=== PATIENT | male | born 1960 | race Caucasian/White ===

== ENCOUNTER → 2017-12-11 16:38 | Outpatient (CLI) | payer MEDICARE, SELFPAY ==
[2017-12-11 19:38] LABS: Anion Gap 7 (5-15); BUN 25 mg/dL (7-18); BUN/Creat Ratio 18.9 RATIO (10-20); Chloride 107 mmol/L (98-107); Creatinine, Serum 1.32 mg/dL (0.70-1.30); EST Glomerular Filtration Rate 59 mL/min (>60); Est Glom Filt Rate - Afr Amer 71 mL/min (>60); Glucose 149 mg/dL (74-106); Potassium 3.8 mmol/L (3.5-5.1); Sodium Level 143 mmol/L (136-145)
== END ==
PROVIDERS: Family Provider Family Medicine; PCP Family Medicine; Visit Provider Family Medicine
DX: E87.6 Hypokalemia (principal)
CPT/HCPCS: 36415; 80048

== ENCOUNTER → 2018-02-15 16:19 | Outpatient (CLI) | payer MEDICARE, SELFPAY ==
[2018-02-15 17:14] LABS: Anion Gap 9 (5-15); BUN 21 mg/dL (7-18); BUN/Creat Ratio 17.6 RATIO (10-20); Calcium,Total 9.3 mg/dL (8.5-10.1); Chloride 108 mmol/L (98-107); Creatinine, Serum 1.19 mg/dL (0.70-1.30); EST Glomerular Filtration Rate 66 mL/min (>60); Est Glom Filt Rate - Afr Amer 80 mL/min (>60); Glucose 115 mg/dL (74-106); Potassium 3.9 mmol/L (3.5-5.1); Sodium Level 141 mmol/L (136-145)
== END ==
PROVIDERS: Family Provider Family Medicine; PCP Family Medicine; Visit Provider Family Medicine
DX: N28.9 Disorder of kidney and ureter, unspecified (principal)
CPT/HCPCS: 36415; 80048

== ENCOUNTER → 2019-02-02 16:34 | Outpatient (CLI) | payer OTHER, SELFPAY ==
[2019-02-02 17:35] LABS: Absolute Lymphocyte Count 1.65 X10^3/ul (0.83-4.51); Absolute Neutrophil Count 4.9 X10^3/uL (2.0-7.7); Basophil# 0.03 X10^3/uL; Basophil% 0.4 % (0-1); Eosinophil# 0.15 X10^3/uL; Hematocrit 44.2 % (40-54); Hemoglobin 14.5 g/dl (13.0-16.5); Lymphocyte # 1.65 X10^3/ul (4.0); Lymphocyte % 22.5 % (19-41); Mean Corp Hgb Conc 32.8 g/gl (32-36); Mean Corpuscular Hgb 30.9 pg (27.0-32.0); Mean Corpuscular Volume 94.2 fL (80-94); Mean Platelet Vol. 11.7 fl (6.2-12.0); Monocyte# 0.59 X10^3/uL; Neutrophil # 4.91 X10^3/uL (2.7-7.7); Platelet Count 226 K/mm3 (150-450); RBC Distribution Width CV 13.4 % (11.6-14.6); RBC Distribution Width SD 44.1 fl (35.1-43.9); Red Blood Count 4.69 M/mm3 (4.6-6.2); White Blood Count 7.3 K/mm3 (4.4-11.0)
[2019-02-02 17:38] LABS: Anion Gap 10 (5-15); BUN 22 mg/dL (7-18); BUN/Creat Ratio 18.3 RATIO (10-20); Calcium,Total 9.2 mg/dL (8.5-10.1); Chloride 106 mmol/L (98-107); EST Glomerular Filtration Rate 65 mL/min (>60); Est Glom Filt Rate - Afr Amer 79 mL/min (>60); Glucose 146 mg/dL (74-106); Potassium 3.6 mmol/L (3.5-5.1); Sodium Level 140 mmol/L (136-145)
[2019-02-02 17:42] LABS: POSITIVE COUNT NO; POSITIVE DIFFERENTIAL NO; POSITIVE MORPHOLOGY NO
== END ==
PROVIDERS: Family Provider Family Medicine; PCP Family Medicine; Visit Provider Family Medicine
DX: E11.9 Type 2 diabetes mellitus without complications (principal); I10 Essential (primary) hypertension
CPT/HCPCS: 36415; 80048; 85025

== ENCOUNTER → 2020-05-21 07:09 | Outpatient (CLI) | payer OTHER, SELFPAY ==
--- NOTE | 2020-05-21 07:20 | MRI_ITS ---
STUDY: MRI RIGHT SHOULDER REASON FOR EXAM: Male, 60 years old. pain x 3 yrs, no injury, decreased rom/strength TECHNIQUE: Standardized fat and water weighted pulse sequences were obtained in all 3 orthogonal planes. COMPARISON: None. FINDINGS: Normal supraspinatus tendon. Normal infraspinatus tendon. Normal subscapularis tendon. Normal teres minor tendon. Normal supraspinatus muscle. Normal infraspinatus muscle. Normal subscapularis muscle. Normal teres minor muscle. There is severe osteoarthritis of the glenohumeral articulation. Normal humeral head and visualized proximal humerus. Normal biceps labral complex. Normal intracapsular long biceps tendon. There is labral degeneration with blunting of the mil, but there is no demonstrated discrete labral tear. Normal capsulo- ligamentous complex. Normal rotator interval. Normal acromioclavicular articulation. There is a Type II morphology (curved), with a neutral orientation. There is no subacromial-subdeltoid bursal fluid. Normal visualized coracohumeral and coracoacromial ligaments. Normal quadrilateral space. Normal axillary space. Normal deltoid muscle. Normal trapezius muscle. MRI/Upper Ext Joint Only(Routine) IMPRESSION: Severe glenohumeral joint arthrosis. Electronically Signed: Delmar Rizvi MD at 9:54 EDT Tel , Service support ,
== END ==
PROVIDERS: PCP Family Medicine; Referring Provider Family Medicine; Visit Provider Family Medicine
DX: M25.511 Pain in right shoulder (principal)
CPT/HCPCS: 73221

== ENCOUNTER → 2020-06-20 15:40 | Outpatient (CLI) | payer OTHER, SELFPAY ==
[2020-06-20 16:52] LABS: Absolute Lymphocyte Count 1.12 X10^3/uL (0.83-4.51); Absolute Neutrophil Count 4.9 X10^3/uL (2.0-7.7); Basophil# 0.03 X10^3/uL; Basophil% 0.4 % (0-1); Hematocrit 42.4 % (40-54); Hemoglobin 13.6 g/dL (13.0-16.5); Lymphocyte # 1.12 X10^3/ul (4.0); Lymphocyte % 16.6 % (19-41); Mean Corp Hgb Conc 32.1 g/dL (32-36); Mean Corpuscular Hgb 30.9 pg (27.0-32.0); Mean Corpuscular Volume 96.4 fL (80-94); Mean Platelet Vol. 12.2 fl (6.2-12.0); Monocyte% 7.4 % (0-10); NRBC Flagged by Analyzer 0 % (0-5); Neutrophil # 4.88 X10^3/uL (2.7-7.7); Neutrophil % 72.2 % (47-70); Platelet Count 232 K/mm3 (150-450); RBC Distribution Width CV 12.9 % (11.6-14.6); RBC Distribution Width SD 45.9 fl (35.1-43.9); White Blood Count 6.8 K/mm3 (4.4-11.0)
[2020-06-20 17:55] LABS: ALB/GLOB Ratio 0.8 RATIO (0.9-2.4); AST(SGOT) 64 U/L (15-37); Alanine Aminotransfer ALT/SGPT 66 U/L (16-61); Albumin, Serum 3.5 g/dL (3.2-5.0); Alkaline Phosphatase 73 U/L (45-117); Anion Gap 9 (5-15); BUN 16 mg/dL (7-18); BUN/Creat Ratio 13.1 RATIO (10-20); Calcium,Total 9.2 mg/dL (8.5-10.1); Chloride 103 mmol/L (98-107); Creatinine, Serum 1.22 mg/dL (0.70-1.30); EST Glomerular Filtration Rate 64 mL/min (>60); Est Glom Filt Rate - Afr Amer 77 mL/min (>60); Globulin 4.4 g/dL (2.2-4.2); Glucose 235 mg/dL (74-106); Potassium 3.6 mmol/L (3.5-5.1); Protein, Total 7.9 g/dL (6.4-8.2); Sodium Level 142 mmol/L (136-145); T4 Free Direct 1.41 ng/dL (0.76-1.46); Thyroid Stim Hormone (TSH) 1.71 uIU/mL (0.358-3.74)
== END ==
PROVIDERS: PCP Family Medicine; Visit Provider Family Medicine
DX: E11.65 Type 2 diabetes mellitus with hyperglycemia (principal); G25.2 Other specified forms of tremor; I10 Essential (primary) hypertension; E78.5 Hyperlipidemia, unspecified
CPT/HCPCS: 36415; 80053; 84439; 84443; 85025

== ENCOUNTER 2020-12-13 10:39 | Outpatient (RCR) | payer MEDICAID, SELFPAY ==
[2020-12-13] MEDS: COVID-19 VACC, MRNA(PFIZER)/PF 30 MCG/0.3 ML SYRINGE IM (06:59)
[2021-01-03] MEDS: COVID-19 VACC, MRNA(PFIZER)/PF 30 MCG/0.3 ML SYRINGE IM (07:14)
== END 2020-12-13 23:59 ==
LOC: IMMUN 10:39
PROVIDERS: PCP Family Medicine; Visit Provider Family Medicine
DX: Z23 Encounter for immunization (principal)
CPT/HCPCS: 0001A; 0002A; 91300

== ENCOUNTER → 2021-01-01 06:22 | Outpatient (CLI) | payer MEDICAID, SELFPAY ==
[2020-12-18 08:17] VITALS: BMI 44.8
[2021-01-01 08:13] LABS: Vitamin B12 453 pg/mL (211-911)
[2021-01-01 08:34] LABS: ALB/GLOB Ratio 0.8 RATIO (0.9-2.4); AST(SGOT) 32 U/L (15-37); Alanine Aminotransfer ALT/SGPT 56 U/L (16-61); Albumin, Serum 3.5 g/dL (3.2-5.0); Alkaline Phosphatase 64 U/L (45-117); Anion Gap 6 (5-15); BUN 24 mg/dL (7-18); BUN/Creat Ratio 19.5 RATIO (10-20); Calcium,Total 9.3 mg/dL (8.5-10.1); Chloride 104 mmol/L (98-107); Creatinine, Serum 1.23 mg/dL (0.70-1.30); EST Glomerular Filtration Rate 63 mL/min (>60); Est Glom Filt Rate - Afr Amer 77 mL/min (>60); Globulin 4.2 g/dL (2.2-4.2); Glucose 189 mg/dL (74-106); Potassium 3.9 mmol/L (3.5-5.1); Protein, Total 7.7 g/dL (6.4-8.2); Sodium Level 138 mmol/L (136-145); Thyroid Stim Hormone (TSH) 2.38 uIU/mL (0.358-3.74)
[2021-01-02 16:08] LABS: Free Kappa Light Chains 30.9 mg/L (3.3-19.4); Free Lambda Light Chains 27.9 mg/L (5.7-26.3)
== END ==
PROVIDERS: PCP Family Medicine; Referring Provider Psychiatry & Neurology Neurology; Visit Provider Psychiatry & Neurology Neurology
DX: G25.0 Essential tremor (principal); G62.9 Polyneuropathy, unspecified; I10 Essential (primary) hypertension
CPT/HCPCS: 36415; 80053; 82607; 82746; 83883; 84443

== ENCOUNTER → 2021-01-28 08:46 | Outpatient (CLI) | payer MEDICAID, SELFPAY ==
[2021-01-30 16:09] LABS: Albumin 3.4 g/dL (2.9-4.4); Alpha-1-Globulins 0.2 g/dL (0.0-0.4); Alpha-2-Globulins 1.1 g/dL (0.4-1.0); Gamma Globulin 0.9 g/dL (0.4-1.8); Immunoglobulin A 288 mg/dL (61-437); Immunoglobulin G 957 mg/dL (603-1613); Immunoglobulin M 84 mg/dL (20-172); PROEL- TOTAL PROTEIN 6.8 g/dL (6.0-8.5)
== END ==
PROVIDERS: PCP Family Medicine; Referring Provider Psychiatry & Neurology Neurology; Visit Provider Psychiatry & Neurology Neurology
DX: G62.9 Polyneuropathy, unspecified (principal)
CPT/HCPCS: 36415; 82784; 84165; 86334; 86335

== ENCOUNTER → 2021-02-18 12:47 | Outpatient (CLI) | payer MEDICAID, SELFPAY ==
[2021-02-04 17:54] VITALS: BMI 43.4
--- NOTE | 2021-02-18 12:52 | RAD_ITS ---
STUDY: X-RAY BONE SURVEY COMPLETE REASON FOR EXAM: Male, 60 years old. MGUS, R/O MYELOMA TECHNIQUE: PA and lateral views of the chest. One view of the pelvis was obtained. 2 views of the cervical spine were obtained. 2 views of the thoracic spine were obtained. 2 views of the lumbar spine were obtained. 2 views of the femur. 2 views of the humerus. : 2 views of the skull were obtained. COMPARISON: None. FINDINGS: CHEST: There are interstitial changes of the lungs. There is no demonstrated pleural abnormality. Normal size heart. Normal mediastinum and cynthia. Normal visualized pulmonary arteries. Normal visualized aortic arch and descending thoracic aorta. There are diffuse degenerative changes of the visualized thoracic spine. Normal visualized ribs, clavicles, and shoulders. There is no demonstrated abnormality of the visualized soft tissue structures of the upper abdomen. PELVIS: There is a non-specific bowel gas pattern. Normal visualized soft tissue structures. Normal bilateral iliac wings, sacroiliac joints and visualized sacrum. Normal visualized bilateral superior and inferior pubic rami. Normal pubic symphysis. Normal ischial tuberosities. Normal visualized right femoral head. Normal right acetabulum. There is mild articular joint space narrowing of the right hip. Normal visualized left femoral head. Normal left acetabulum. There is mild articular joint space narrowing of the left hip. CERVICAL SPINE: Normal anterior atlantoaxial articulation. Normal odontoid process. There is straightening of the normal cervical lordosis. There is multi-level endplate spondylosis. There is multi-level degenerative disc disease with multilevel disc space narrowing. The soft tissue structures are unremarkable. THORACIC SPINE: Normal kyphosis of the thoracic spine. There is no substantial scoliosis. There is multilevel endplate spondylosis of the thoracic vertebrae. There is multilevel disc space narrowing of the thoracic spine. The soft tissue structures are unremarkable. LUMBAR SPINE: Normal lumbar lordosis. There is no substantial scoliosis. There is a normal alignment of the vertebrae. There is multilevel endplate spondylosis of the lumbar vertebrae. There is multi-level degenerative disc disease with multi-level disc space narrowing. There is atherosclerotic calcification of the abdominal aorta without a demonstrated aneurysm. RIGHT FEMUR: There is been previous ORIF of a distal femoral fracture. I suspect that the original fracture has healed, but there has likely been a second fracture which also involve the distal aspect of the intramedullary coby. The distal tip of the intramedullary coby is displaced laterally by one width of the coby. The second fracture has not completely healed as there is extensive lucency still noted. There is no suspicious erosive lesion noted within the right femur. LEFT FEMUR: Normal visualized femur. Normal visualized soft tissue structure. RIGHT HUMERUS :Normal visualized humerus. There is no demonstrated fracture or osseous destructive process. There is no demonstrated soft tissue abnormality. LEFT HUMERUS:Normal visualized humerus. There is no demonstrated fracture or osseous destructive process. There is no demonstrated soft tissue abnormality. SKULL: There is no demonstrated soft tissue swelling. There are multiple subtle lucencies within the calvarium. Although this may represent a myelomatous process, the lack of other erosive changes in other osseous structures could simply represent granulomatous process or epidermoid cyst. Normal visualized facial bones. Normal visualized paranasal sinuses. There is lucency surrounding a right mandibular molar suggesting abscessed tooth. RAD/Bone Survey Comp(Axial&Append) IMPRESSION: There are subtle circular lucencies noted within the calvarium. Certainly, a myelomatous process could have this appearance but since there are no other concerning lucent lesions in the other bony structures, my suspicion that this is myelomatous process is low. Other possibilities for skull lucencies include granulomatous processes, epidermoid inclusion cyst. No other suspicious lucent lesions identified within the spine long bones or pelvis. The distal aspect of the intramedullary coby in the right femur has been fractured, and displaced laterally. I suspect there was a second fracture in the distal femur after the originally reduced fracture had healed. The second fracture has not yet completely healed as serpiginous lucencies are still seen throughout its course. Age consistent hip and knee arthrosis Possible abscessed tooth in the right mandible Electronically Signed: Erwin Saleh MD at 11:09 EDT , Service support ,
== END ==
PROVIDERS: PCP Family Medicine; Referring Provider Internal Medicine Hematology & Oncology; Visit Provider Internal Medicine Hematology & Oncology
DX: D47.2 Monoclonal gammopathy (principal)
CPT/HCPCS: 77075

== ENCOUNTER → 2021-02-20 08:20 | Outpatient (CLI) | payer MEDICAID, SELFPAY ==
[2020-12-18 08:17] VITALS: BMI 44.8
[2021-02-04 17:54] VITALS: BMI 43.4
--- NOTE | 2021-02-20 14:12 | NEURO ---
NCS and/or EMG Patient Report Ordering Doctor: Jacobo Stapleton DATE OF SERVICE: 02/20/21 Lloyd Tee presents for electrodiagnostic testing of the right upper limb. Reports numbness and tingling in the right hand. He also has pain in the right upper arm. Electrodiagnostic findings: Absent right median motor and sensory responses. Right ulnar motor responses within normal limits. Normal right ulnar and radial sensory responses. Prolonged right ulnar F wave. Right median F wave cannot be obtained. On needle EMG, all muscles tested in the right upper limb, as well as the right cervical paraspinal showed no evidence of denervation with normal motor unit action potentials. Electrodiagnostic impression: This is an abnormal study in the right upper limb. 1. The absence of median motor and sensory responses, in conjunction with clinical symptoms, suggest right-sided median mononeuropathy. This is consistent with a right carpal tunnel syndrome, likely advanced in nature. 2. There is no electrodiagnostic evidence for cervical radiculopathy.
== END ==
PROVIDERS: PCP Family Medicine; Referring Provider Psychiatry & Neurology Neurology; Visit Provider Psychiatry & Neurology Neurology
DX: G56.01 Carpal tunnel syndrome, right upper limb (principal)
CPT/HCPCS: 95886; 95910

== ENCOUNTER 2021-04-16 17:45 | Emergency (ER) | payer MEDICAID, SELFPAY ==
[2021-04-01 15:32] VITALS: BMI 43.3
[2021-04-16 17:46] VITALS: BP 144/85; PULSE 78; RESP 18; TEMP 36.7; O2SAT 96; BMI 40.6
[2021-04-16 18:14] LABS: Bacteria 0 SEEN /hpf (None Seen); Mucous, Urine 0 SEEN /hpf (<or=2+); Squamous Epithelial Cells - UA 0 SEEN /hpf (0-5)
[2021-04-16 18:21] LABS: Color, Urine Yellow (Yellow); Glucose, Dipstick Normal (Normal); Ketone-Dipstick Negative (Negative); Leukocyte Esterase-Dipstick Negative /ul (Negative); Nitrite-Dipstick Negative (Negative); Occult Blood-Urine 250 /ul (Negative); Protein-Dipstick 15 mg/dl (Negative); Specific Gravity, Urine 1.015 (1.002-1.030); Urine Bilirubin Dipstick Negative (Negative); Urine Clarity Clear (Clear); Urine Urobilinogen Normal (Normal)
[2021-04-16] MEDS: Morphine 4 MG/ML Syringe IV (18:43)
--- NOTE | 2021-04-16 18:45 | EDS_ITS ---
HPI History of Present Illness Chief Complaint: Abd Pain Informant: patient Narrative Narrative: Patient is a 61-year-old male with a past medical history of hypertension, hyperlipidemia, diabetes who presents to the emergency department for left-sided flank pain that radiates to his abdomen. Started earlier today. He describes the pain as severe. He has not been taking anything for it. Movement seems to exacerbate his symptoms. He denies any change in bowel movements. No urinary symptoms. No nausea vomiting. No fevers or chills. He is never had this pain before. Does have a history of appendectomy. Of note he did have a reverse shoulder replacement this past Thursday. He denies any chest pain or shortness of breath. No heart palpitations. [facility] Medical History (Updated 04/16/21 @ 21:[address] Pascual Barr, ) Atherosclerosis of coronary artery without angina pectoris Diabetes Essential hypertension GERD (gastroesophageal reflux disease) History of appendicitis Hyperlipidemia Obesity MARKOS (obstructive sleep apnea) Home Medications atorvastatin 40 mg PO QHS 03/02/14 [History Last Taken Unknown] multivitamin 1 tab PO DAILY 03/02/14 [History Last Taken Unknown] omeprazole 20 mg PO DAILY 03/02/14 [History Last Taken 03/03/14] aspirin 81 mg chewable tablet 81 mg PO DAILY tab 12/17/20 [History Last Taken Unknown] atenolol 50 mg tablet 50 mg PO DAILY 12/17/20 [History Last Taken Unknown] lisinopril 20 mg-hydrochlorothiazide 12.5 mg tablet 1 tab PO BID tab 12/17/20 [History Last Taken Unknown] metformin 500 mg tablet 1,000 mg PO BID tablet 01/21/21 [History Last Taken Unknown] Right wrist splint #1 ea 04/01/21 [Rx Last Taken Unknown] flurbiprofen 100 mg tablet 100 mg PO TID PRN #90 tab 04/01/21 [Rx Last Taken Unknown] hydrocodone-acetaminophen 1 tab PO Q6H PRN 3 Days #12 tab 04/16/21 [Rx Last Taken Unknown] naproxen [Naprosyn] 500 mg PO BID 7 Days #14 tab 04/16/21 [Rx Last Taken Unknown] ondansetron 4 mg PO Q8H PRN 4 Days #10 tab 04/16/21 [Rx Last Taken Unknown] primidone 100 mg PO BID 04/16/21 [History Last Taken Unknown] tamsulosin [Flomax] 0.4 mg PO DAILY #7 cap 04/16/21 [Rx Last Taken Unknown] Allergy/AdvReac Type Severity Reaction Status Date / Time No Known Allergies Allergy Verified 04/16/21 17:48 Family History Father Diabetes Heart disease Hypertension CAD (coronary artery disease) Surgical History (Updated 04/16/21 @ 18:36 by Carmen Hood) History of appendectomy History of carpal tunnel surgery History of fracture of leg History of left heart catheterization (03/03/14) History of rotator cuff surgery Social History household members: significant other Smoking Status: Former smoker Tobacco: How many years used: 10 Smokeless tobacco user: chewing tobacco and other how long ago did patient quit smokin years ago alcohol intake: current alcohol intake frequency: holidays/special occasions only Alcohol type: beer substance use type: does not use caffeine: Yes Type: tea Number of servings: 2 seatbelt use: never do you feel safe at home: Yes ROS ROS ED Constitutional Constitutional ED: Denies chills or fever(s) Eyes Eyes: Denies change in vision ENT ENT ED: Denies epistaxis or rhinorrhea Cardiovascular Cardiovascular: Denies chest pain or palpitations Respiratory/Chest Respiratory/Chest: Denies cough, dyspnea or dyspnea on exertion Gastrointestinal Gastrointestinal: Reports abdominal pain; Denies diarrhea, nausea or vomiting Genitourinary Genitourinary ED: Denies dysuria, hematuria or urinary frequency Musculoskeletal Musculoskeletal: Reports back pain; Denies neck pain Integumentary Denies rash Neurologic Neurologic: Denies dizziness, headache(s) or weakness EXAM Physical Exam Const Vital Signs: 04/16/21 17:46 04/16/21 20:36 Temperature 98.0 F Temperature Source Temporal Pulse Rate 78 Respiratory Rate 18 16 Blood Pressure 144/85 H Blood Pressure Mean 104 Pulse Ox 96 Oxygen Delivery Method Room Air Positive well nourished and well developed Constitutional Narrative: Patient appears uncomfortable in pain but no apparent distress. General Appearance ED: well developed HEENT Reports normocephalic, head/scalp atraumatic and moist mucous membranes Eyes PERRL and EOMs intact bilaterally Neck supple Chest Wall inspection of chest normal Resp normal respiratory effort and clear to auscultation bilaterally Auscultation: Negative for rales, rhonchi or wheezes Cardio regular rate, regular rhythm and no murmurs GI normal to inspection, nondistended, normoactive bowel sounds and non-tender GI Narrative: There is tenderness to the left lower quadrant that does wrap around the lateral side of the abdomen. Palpation: soft; Negative for guarding or rebound tenderness present Back/Spine General Back: CVA tenderness left Extremity normal to inspection General Extremety ED: Negative for edema or tenderness General Extremity: Negative for edema Neuro CN's II-XII intact bilaterally and no sensory deficits noted Sensorium / Orientation: alert Motor Exam: strength 5/5 throughout Psych mental status grossly normal MDM MDM MDM Narrative Medical decision making narrative: Patient presents to the ED for left-sided flank and abdominal pain. He did have a recent shoulder replacement this past Thursday. On arrival to the ED is mildly hypertensive but otherwise normal vital signs. He is in no acute distress. Will check CT scan of the abdomen/pelvis as well as basic lab work and urinalysis. Is given a dose of morphine for symptomatic treatment. Patient's lab work shows him to be mildly anemic at 12.1. No elevation of white blood cell count. Potassium minimally low at 3.3. His creatinine is 1.34. Otherwise no abnormality on liver function test. Urine does have some blood but no evidence of infection. CT scan was significant for a 3 mm left proximal ureteral stone. There is hydronephrosis present. On reassessment patient still having pain so was given a dose of Toradol. After this he was feeling better and does feel like this is manageable at home. We will write a prescription for pain medication including [place] Naprosyn. Is given Zofran for symptomatic treatment for nausea. He is given a prescription for Flomax as well. Is given a urology referral. Return precautions are reviewed. He understands and is agreeable this plan. Discharged home in stable condition. Lab Data Labs: Laboratory Results - last 24 hr 04/16/21 04/16/21 04/16/21 17:58 18:09 18:45 WBC Cancelled Corrected WBC Cancelled RBC Cancelled Hgb Cancelled Hct Cancelled MCV Cancelled MCH Cancelled MCHC Cancelled RDW Std Deviation Cancelled RDW Coeff of Isidro Cancelled Plt Count Cancelled MPV Cancelled Immature Gran % (Auto) Cancelled Neut % (Auto) Cancelled Lymph % (Auto) Cancelled [place] % (Auto) Cancelled Eos % (Auto) Cancelled Baso % (Auto) Cancelled Absolute Neuts (auto) Cancelled Absolute Lymphs (auto) Cancelled Total Counted Cancelled Neutrophils % (Manual) Cancelled Band Neutrophils % Cancelled Lymphocytes % (Manual) Cancelled Monocytes % (Manual) Cancelled Eosinophils % (Manual) Cancelled Basophils % (Manual) Cancelled Metamyelocytes % Cancelled Myelocytes % Cancelled Promyelocytes % Cancelled Blast Cells % Cancelled Plasma Cell % (Manual) Cancelled Other Cells % Cancelled Nucleated RBC % Cancelled Nucleated RBCs/100 WBC Cancelled Differential Comment Cancelled Diff Path Review Cancelled Hypersegmented Neuts Cancelled Atypical Lymphocytes Cancelled Reactive Lymphocytes Cancelled Smudge Cells Cancelled Toxic Granulation Cancelled Toxic Vacuolation Cancelled Dohle Bodies Cancelled [place] Rods Cancelled Platelet Estimate Cancelled Plt Morphology Comment Cancelled RBC Morphology Cancelled Polychromasia Cancelled Hypochromasia Cancelled Poikilocytosis Cancelled Basophilic Stippling Cancelled Anisocytosis Cancelled Microcytosis Cancelled Macrocytosis Cancelled Spherocytes Cancelled Sickle Cells Cancelled Target Cells Cancelled Tear Drop Cells Cancelled Ovalocytes Cancelled Stomatocytes Cancelled [place] Bodies Cancelled [place] Cells Cancelled Bite Cells Cancelled Crenated Cell Cancelled Acanthocytes (Spur) Cancelled Rouleaux Cancelled Schistocytes Cancelled Sodium 139 Potassium 3.3 L Chloride 105 Carbon Dioxide 26.0 Anion Gap 8 BUN 18 Creatinine 1.34 H Estim Creat Clear Calc 56.43 Est GFR (MDRD) Af Amer 69 Est GFR (MDRD) Non-Af 57 L BUN/Creatinine Ratio 13.4 Glucose 205 H Calcium 9.0 Total Bilirubin 0.60 AST 27 ALT 34 Alkaline Phosphatase 79 Total Protein 7.7 Albumin 3.0 L Globulin 4.7 H Albumin/Globulin Ratio 0.6 L Lipase 74 Urine Color Yellow Urine Clarity Clear Urine pH 5.0 Ur Specific [place] 1.015 Urine Protein 15 H Urine Glucose (UA) Normal Urine Ketones Negative Urine Occult Blood 250 H Urine Nitrite Negative Urine Bilirubin Negative Urine Urobilinogen Normal Ur Leukocyte Esterase Negative Urine RBC 25-50 SEEN Urine WBC 0-5 SEEN Ur Squamous Epith Cells 0 SEEN Urine Bacteria 0 SEEN Urine Mucus 0 SEEN 04/16/21 18:45 WBC 9.4 Corrected WBC RBC 3.87 L Hgb 12.1 L Hct 36.3 L MCV 93.8 MCH 31.3 MCHC 33.3 RDW Std Deviation 43.8 RDW Coeff of Isidro 12.8 Plt Count 253 MPV 11.3 Immature Gran % (Auto) 0.300 Neut % (Auto) 80.5 H Lymph % (Auto) 8.9 L [place] % (Auto) 7.6 Eos % (Auto) 2.4 Baso % (Auto) 0.3 Absolute Neuts (auto) 7.5 Absolute Lymphs (auto) 0.83 Total Counted Neutrophils % (Manual) Band Neutrophils % Lymphocytes % (Manual) Monocytes % (Manual) Eosinophils % (Manual) Basophils % (Manual) Metamyelocytes % Myelocytes % Promyelocytes % Blast Cells % Plasma Cell % (Manual) Other Cells % Nucleated RBC % 0 Nucleated RBCs/100 WBC Differential Comment Diff Path Review Hypersegmented Neuts Atypical Lymphocytes Reactive Lymphocytes Smudge Cells Toxic Granulation Toxic Vacuolation Dohle Bodies [place] Rods Platelet Estimate Plt Morphology Comment RBC Morphology Polychromasia Hypochromasia Poikilocytosis Basophilic Stippling Anisocytosis Microcytosis Macrocytosis Spherocytes Sickle Cells Target Cells Tear Drop Cells Ovalocytes Stomatocytes [place] Bodies [place] Cells Bite Cells Crenated Cell Acanthocytes (Spur) Rouleaux Schistocytes Sodium Potassium Chloride Carbon Dioxide Anion Gap BUN Creatinine Estim Creat Clear Calc Est GFR (MDRD) Af Amer Est GFR (MDRD) Non-Af BUN/Creatinine Ratio Glucose Calcium Total Bilirubin AST ALT Alkaline Phosphatase Total Protein Albumin Globulin Albumin/Globulin Ratio Lipase Urine Color Urine Clarity Urine pH Ur Specific [place] Urine Protein Urine Glucose (UA) Urine Ketones Urine Occult Blood Urine Nitrite Urine Bilirubin Urine Urobilinogen Ur Leukocyte Esterase Urine RBC Urine WBC Ur Squamous Epith Cells Urine Bacteria Urine Mucus Radiography Diagnostic Testing: Radiology Impression Abdomen/Pelvis CT 04/16/21 18:45 IMPRESSION: Left proximal ureteral stone with hydronephrosis. Sigmoid diverticulitis. No obstruction or abscess. Hepatomegaly. No biliary dilatation. Electronically Signed: Cristhian Reilly MD at 19:48 EDT , Service support , Discharge Plan Triage Chief Complaint: Abd Pain ED Provider: Pascual Barr Dx/Rx/DC Orders Clinical Impression: Kidney stone Instructions: ED Kidney Stone w/ Colic Prescriptions: New hydrocodone-acetaminophen 5-325 mg tablet 1 tab PO Q6H PRN (Reason: pain) 3 Days Qty: 12 RF: 0 naproxen [Naprosyn] 500 mg tablet 500 mg PO BID 7 Days Qty: 14 RF: 0 tamsulosin [Flomax] 0.4 mg capsule 0.4 mg PO DAILY Qty: 7 RF: 0 ondansetron 4 mg tablet,disintegrating 4 mg PO Q8H PRN (Reason: nausea and vomiting) 4 Days Qty: 10 RF: 0 No Action atenolol 50 mg tablet 50 mg PO DAILY RF: 0 flurbiprofen 100 mg tablet 100 mg PO TID PRN (Reason: pain) Qty: 90 RF: 2 (DME) Right wrist splint See Rx Instructions .Route .MEDSUPPLY Qty: 1 RF: 0 multivitamin 1 TABLET tablet 1 tab PO DAILY RF: 0 atorvastatin 40 MG tablet 40 mg PO QHS RF: 0 omeprazole 20 MG capsule 20 mg PO DAILY RF: 0 lisinopril-hydrochlorothiazide 20-12.5 mg tablet 1 tab PO BID RF: 0 aspirin 81 mg tablet,chewable 81 mg PO DAILY RF: 0 metformin 500 mg tablet 1,000 mg PO BID RF: 0 primidone 50 mg tablet 100 mg PO BID RF: 0 Primary Care Provider: Ramana Holman Referrals: Edy Groves MD [STAFF PHYSICIAN] - 3-5 Days Ramana Holman MD [Primary Care Provider] - Disposition Disposition: Home, Self Care
--- NOTE | 2021-04-16 18:45 | CT_ITS ---
STUDY: CT ABDOMEN AND PELVIS WITHOUT CONTRAST REASON FOR EXAM: Male, 61 years old. L Flank pain, eval for stone RADIATION DOSAGE (If Supplied By Facility): CTDIvol = ( 23.51 ) mGy, DLP = ( 1345.09 ) mGycm TECHNIQUE: Transaxial images were obtained from the dome of the diaphragm to the symphysis pubis without oral contrast, and without intravenous contrast. Sagittal and coronal images were reconstructed. Individualized dose optimization techniques were used for this CT. COMPARISON: August 24, 2017 FINDINGS: The visualized lung bases are unremarkable. There are coronary artery calcifications. There is bilateral gynecomastia. There is hepatomegaly with diffuse hepatic enlargement. Normal gallbladder and extrahepatic biliary system. Normal spleen. Normal pancreas. Normal bilateral adrenal glands. Normal right kidney. There is mild left hydronephrosis with perinephric stranding. There is a 0.3 cm left proximal ureteral stone, series 2 image 97/210. There is a small hiatal hernia. Normal small intestine. There is diverticulosis, with thickening of the sigmoid colon wall, and pericolonic inflammation changes consistent with acute diverticulitis. The appendix is visualized and appears normal. There is diffuse atherosclerotic calcification of the abdominal aorta, without a demonstrated aneurysm. Normal inferior vena cava. Normal retroperitoneum. Normal urinary bladder. There is no free fluid in the abdomen or pelvis. Normal abdominal wall. There are diffuse degenerative changes of the visualized lumbar spine. CT/Abdomen/Pelvis without Cont IMPRESSION: Left proximal ureteral stone with hydronephrosis. Sigmoid diverticulitis. No obstruction or abscess. Hepatomegaly. No biliary dilatation. Electronically Signed: Cristhian Reilly MD at 19:48 EDT , Service support ,
[2021-04-16 18:47] LABS: Absolute Lymphocyte Count 0.83 X10^3/uL (0.83-4.51); Absolute Neutrophil Count 7.5 X10^3/uL (2.0-7.7); Basophil# 0.03 X10^3/uL; Basophil% 0.3 % (0-1); Eosinophil# 0.22 X10^3/uL; Eosinophils% 2.4 % (0-5); Hematocrit 36.3 % (40-54); Hemoglobin 12.1 g/dL (13.0-16.5); Lymphocyte # 0.83 X10^3/ul (0.83-4.51); Lymphocyte % 8.9 % (19-41); Mean Corp Hgb Conc 33.3 g/dL (32-36); Mean Corpuscular Hgb 31.3 pg (27.0-32.0); Mean Corpuscular Volume 93.8 fL (80-94); Mean Platelet Vol. 11.3 fl (6.2-12.0); Monocyte# 0.71 X10^3/uL; Monocyte% 7.6 % (0-10); NRBC Flagged by Analyzer 0 % (0-5); Neutrophil # 7.54 X10^3/uL (2.7-7.7); Neutrophil % 80.5 % (47-70); Platelet Count 253 K/mm3 (150-450); RBC Distribution Width CV 12.8 % (11.6-14.6); RBC Distribution Width SD 43.8 fl (35.1-43.9); Red Blood Count 3.87 M/mm3 (4.6-6.2); White Blood Count 9.4 K/mm3 (4.4-11.0)
[2021-04-16 18:47] LABS: Red Blood Cells-Urine 25-50 SEEN /hpf (0-5); White Blood Cells 0-5 SEEN /hpf (0-5)
[2021-04-16 19:06] LABS: ALB/GLOB Ratio 0.6 RATIO (0.9-2.4); AST(SGOT) 27 U/L (15-37); Alanine Aminotransfer ALT/SGPT 34 U/L (16-61); Alkaline Phosphatase 79 U/L (45-117); Anion Gap 8 (5-15); BUN 18 mg/dL (7-18); BUN/Creat Ratio 13.4 RATIO (10-20); Chloride 105 mmol/L (98-107); Creatinine, Serum 1.34 mg/dL (0.70-1.30); EST Glomerular Filtration Rate 57 mL/min (>60); Est Glom Filt Rate - Afr Amer 69 mL/min (>60); Estimated Creatinine Clearance 56.43 ml/min; Globulin 4.7 g/dL (2.2-4.2); Glucose 205 mg/dL (74-106); Lipase 74 U/L (73-393); Potassium 3.3 mmol/L (3.5-5.1); Protein, Total 7.7 g/dL (6.4-8.2); Sodium Level 139 mmol/L (136-145)
[2021-04-16] MEDS: Ketorolac 30 MG/ML Syringe IV (20:04)
[2021-04-16 20:36] VITALS: RESP 16
[2021-04-16 21:35] VITALS: BP 129/83; PULSE 71; RESP 16; O2SAT 97
== END 2021-04-16 21:36 | disposition home or self-care (01) ==
PROVIDERS: Emergency Provider Emergency Medicine; PCP Family Medicine
DX: N13.2 Hydronephrosis with renal and ureteral calculous obstruction (principal); R10.9 Unspecified abdominal pain; E87.6 Hypokalemia; I25.10 Atherosclerotic heart disease of native coronary artery without angina pectoris; E11.9 Type 2 diabetes mellitus without complications; I10 Essential (primary) hypertension; E78.5 Hyperlipidemia, unspecified; K21.9 Gastro-esophageal reflux disease without esophagitis; G47.33 Obstructive sleep apnea (adult) (pediatric); E66.9 Obesity, unspecified; Z79.82 Long term (current) use of aspirin; Z79.84 Long term (current) use of oral hypoglycemic drugs; Z79.1 Long term (current) use of non-steroidal anti-inflammatories (NSAID); Z79.899 Other long term (current) drug therapy; Z87.891 Personal history of nicotine dependence
CPT/HCPCS: 74176; 80048; 80053; 81001; 83690; 85025; 96374; 96375; 99283; A4216

== ENCOUNTER → 2022-12-30 | Outpatient (CLI) | payer MEDICAID, SELFPAY ==
[2022-12-30 10:37] LABS: ALB/GLOB Ratio 0.8 RATIO (0.9-2.4); AST(SGOT) 76 U/L (15-37); Alanine Aminotransfer ALT/SGPT 76 U/L (16-61); Albumin, Serum 3.4 g/dL (3.2-5.0); Alkaline Phosphatase 57 U/L (45-117); Anion Gap 4 (5-15); BUN 22 mg/dL (7-18); BUN/Creat Ratio 16.3 RATIO (10-20); Calcium,Total 9.3 mg/dL (8.5-10.1); Chloride 107 mmol/L (98-107); Creatinine, Serum 1.35 mg/dL (0.70-1.30); EST Glomerular Filtration Rate 56 mL/min (>60); Est Glom Filt Rate - Afr Amer 68 mL/min (>60); Globulin 4.4 g/dL (2.2-4.2); Glucose 265 mg/dL (74-106); Protein, Total 7.8 g/dL (6.4-8.2); Sodium Level 140 mmol/L (136-145)
== END | disposition home or self-care (01) ==
PROVIDERS: Referring Provider Psychiatry & Neurology Neurology; Visit Provider Psychiatry & Neurology Neurology
DX: G25.0 Essential tremor (principal)
CPT/HCPCS: 36415; 80053; 82140

== ENCOUNTER → 2023-04-28 | Outpatient (CLI) | payer MEDICARE, MEDICAID, SELFPAY ==
[2023-04-28 17:57] LABS: Absolute Lymphocyte Count 1.28 X10^3/uL (0.83-4.51); Absolute Neutrophil Count 3.7 X10^3/uL (2.0-7.7); Basophil# 0.05 X10^3/uL; Basophil% 0.9 % (0-1); Eosinophils% 5.2 % (0-5); Hematocrit 41.5 % (40-54); Hemoglobin 13.1 g/dL (13.0-16.5); Lymphocyte # 1.28 X10^3/ul (0.83-4.51); Lymphocyte % 22.1 % (19-41); Mean Corp Hgb Conc 31.6 g/dL (32-36); Mean Corpuscular Hgb 31.6 pg (27.0-32.0); Mean Corpuscular Volume 100.2 fL (80-94); Mean Platelet Vol. 12.2 fl (6.2-12.0); Monocyte# 0.38 X10^3/uL; Monocyte% 6.6 % (0-10); NRBC Flagged by Analyzer 0 % (0-5); Neutrophil # 3.74 X10^3/uL (2.7-7.7); Neutrophil % 64.7 % (47-70); Platelet Count 197 K/mm3 (150-450); RBC Distribution Width CV 13.5 % (11.6-14.6); RBC Distribution Width SD 50.1 fl (35.1-43.9); Red Blood Count 4.14 M/mm3 (4.6-6.2); White Blood Count 5.8 K/mm3 (4.4-11.0)
[2023-04-28 19:16] LABS: ALB/GLOB Ratio 0.8 RATIO (0.9-2.4); AST(SGOT) 60 U/L (15-37); Alanine Aminotransfer ALT/SGPT 72 U/L (16-61); Albumin, Serum 3.5 g/dL (3.2-5.0); Alkaline Phosphatase 64 U/L (45-117); Anion Gap 8 (5-15); BUN 23 mg/dL (7-18); BUN/Creat Ratio 16.9 RATIO (10-20); Calcium,Total 9.7 mg/dL (8.5-10.1); Chloride 104 mmol/L (98-107); Cholesterol 155 mg/dL (200); Creatinine, Serum 1.36 mg/dL (0.70-1.30); EST Glomerular Filtration Rate 56 mL/min (>60); Est Glom Filt Rate - Afr Amer 68 mL/min (>60); Globulin 4.3 g/dL (2.2-4.2); Glucose 269 mg/dL (74-106); High Density Lipoprotein 39 mg/dL; Potassium 4.1 mmol/L (3.5-5.1); Protein, Total 7.8 g/dL (6.4-8.2); Sodium Level 139 mmol/L (136-145); Triglycerides 332 mg/dL; Very Low Density Lipoprotein 66 mg/dL (5-40)
== END | disposition home or self-care (01) ==
LOC: BFHLAB 14:32
PROVIDERS: PCP Nurse Practitioner Family; Referring Provider Nurse Practitioner Family; Visit Provider Nurse Practitioner Family
DX: I10 Essential (primary) hypertension (principal); E11.9 Type 2 diabetes mellitus without complications; E78.5 Hyperlipidemia, unspecified
CPT/HCPCS: 36415; 80053; 80061; 85025

== ENCOUNTER → 2023-05-19 | Outpatient (CLI) | payer MEDICARE, MEDICAID, SELFPAY ==
--- NOTE | 2023-05-19 07:50 | US_ITS ---
STUDY: ABDOMINAL ULTRASOUND - RIGHT UPPER QUADRANT REASON FOR VISIT: Male, 63 years old elevated transaminases TECHNIQUE: Ultrasound evaluation of the right upper quadrant was performed with real-time and static roth-scale imaging. TECHNICAL QUALITY: Adequate. COMPARISON: None. FINDINGS: Liver: The liver is enlarged and measures 21 cm. There is increased echogenicity consistent with fatty infiltration. The bile ducts are within normal limits. There is hepatic color flow. The direction of portal flow is hepatopetal. There is no demonstrated mass lesion. Gallbladder: Normal distended gallbladder. The gallbladder wall measures 2.3 mm. There is a negative sonographic Rich''s sign. There is no pericholecystic fluid. There are no gallstones. Common Bile Duct (C.B.D.): The common bile duct measures 4.8 mm. Pancreas: Normal size of the head, body and tail of the pancreas. There is increased echogenicity of the pancreas. There is no demonstrated pancreatic mass or cyst. Right Kidney: Normal size of the right kidney. The right kidney measures 13.5 cm x 6 x 5.6 cm. Normal renal cortex. The right cortex measures 1.4 cm. There is no demonstrated renal mass or cyst. There is no right hydronephrosis. US/Liver IMPRESSION: Hepatomegaly and fatty infiltration of the liver. Electronically Signed: Jose Groves MD at 10:49 EDT ,
== END | disposition home or self-care (01) ==
PROVIDERS: PCP Nurse Practitioner Family; Referring Provider Psychiatry & Neurology Neurology; Visit Provider Psychiatry & Neurology Neurology
DX: R74.01 Elevation of levels of liver transaminase levels (principal)
CPT/HCPCS: 76705

== ENCOUNTER → 2024-05-02 | Outpatient (CLI) | payer MEDICARE, SELFPAY ==
[2024-05-02 12:10] LABS: Absolute Lymphocyte Count 1.36 X10^3/uL (0.83-4.51); Absolute Neutrophil Count 4.2 X10^3/uL (2.0-7.7); Basophil# 0.03 X10^3/uL; Basophil% 0.5 % (0-1); Eosinophil# 0.23 X10^3/uL; Eosinophils% 3.6 % (0-5); Hematocrit 39.8 % (40-54); Hemoglobin 12.6 g/dL (13.0-16.5); Lymphocyte # 1.36 X10^3/ul (0.83-4.51); Lymphocyte % 21.5 % (19-41); Mean Corp Hgb Conc 31.7 g/dL (32-36); Mean Corpuscular Hgb 30.9 pg (27.0-32.0); Mean Corpuscular Volume 97.5 fL (80-94); Mean Platelet Vol. 12.8 fl (6.2-12.0); Monocyte# 0.49 X10^3/uL; Monocyte% 7.7 % (0-10); NRBC Flagged by Analyzer 0 % (0-5); Neutrophil # 4.21 X10^3/uL (2.7-7.7); Neutrophil % 66.5 % (47-70); Platelet Count 174 K/mm3 (150-450); RBC Distribution Width CV 13.1 % (11.6-14.6); RBC Distribution Width SD 46.7 fl (35.1-43.9); Red Blood Count 4.08 M/mm3 (4.6-6.2); White Blood Count 6.3 K/mm3 (4.4-11.0)
[2024-05-02 12:43] LABS: ALB/GLOB Ratio 0.8 RATIO (0.9-2.4); AST(SGOT) 47 U/L (15-37); Alanine Aminotransfer ALT/SGPT 56 U/L (16-61); Albumin, Serum 3.4 g/dL (3.2-5.0); Alkaline Phosphatase 50 U/L (45-117); Anion Gap 7 (5-15); BUN 18 mg/dL (7-18); BUN/Creat Ratio 13.4 RATIO (10-20); Calcium,Total 9.1 mg/dL (8.5-10.1); Chloride 107 mmol/L (98-107); Cholesterol 134 mg/dL (200); Creatinine, Serum 1.34 mg/dL (0.70-1.30); EST Glomerular Filtration Rate 57 mL/min (>60); Est Glom Filt Rate - Afr Amer 69 mL/min (>60); Globulin 4.1 g/dL (2.2-4.2); Glucose 223 mg/dL (74-106); High Density Lipoprotein 37 mg/dL; PSA,Total - Annual Screen 0.36 ng/mL (0.00-4.00); Potassium 4.2 mmol/L (3.5-5.1); Protein, Total 7.5 g/dL (6.4-8.2); Sodium Level 139 mmol/L (136-145); Triglycerides 250 mg/dL; Very Low Density Lipoprotein 50 mg/dL (5-40)
== END | disposition home or self-care (01) ==
PROVIDERS: PCP Nurse Practitioner Family; Referring Provider Nurse Practitioner Family; Visit Provider Nurse Practitioner Family
DX: Z12.5 Encounter for screening for malignant neoplasm of prostate (principal); I10 Essential (primary) hypertension; E78.5 Hyperlipidemia, unspecified
CPT/HCPCS: 36415; 80053; 80061; 84153; 85025; G0103

== ENCOUNTER → 2024-10-24 | Outpatient (CLI) | payer MEDICARE, SELFPAY | END | disposition home or self-care (01) | LOC: MTLAB 08:46 | PROVIDERS: PCP Nurse Practitioner Family; Referring Provider Psychiatry & Neurology Neurology; Visit Provider Psychiatry & Neurology Neurology | DX: G25.0 Essential tremor (principal); R74.01 Elevation of levels of liver transaminase levels | CPT/HCPCS: 36415; 82140 ==

== ENCOUNTER 2024-11-06 22:06 | Observation (INO) | payer MEDICARE, SELFPAY ==
[2024-11-06 22:12] VITALS: BP 158/81; PULSE 102; RESP 22; TEMP 37.9; O2SAT 95
--- NOTE | 2024-11-06 22:17 | CT_ITS ---
PROCEDURE: CT BRAIN WITHOUT CONTRAST REASON FOR EXAM: Acute neurological deficit. TECHNIQUE: Contiguous axial scans of 3.75 mm slice thicknesses with sagittal and coronal reconstruction images. One or more dose reduction techniques were utilized (e.g., automated exposure control, adjustment of mA and/or kv according to patient size, use of iterative reconstruction technique). COMPARISON: No relevant prior. FINDINGS: No intraparenchymal hemorrhage. No abnormal areas of encephalomalacia. No mass effect or midline shift. Farley-white matter differentiation is normal. Ventricles and cisterns are appropriately size for patient's age. No extra-axial fluid collections. Calcification in the anterior falx cerebri. Cerebellum and posterior fossa unremarkable. Mild mucoperiosteal thickening, right maxillary sinus. Mastoid air cells are normal. Calvarium unremarkable. Leftward deviation of the nasal septum. Soft tissues unremarkable. CT/STROKE Brain/Head without Cont IMPRESSION: 1. No acute intracranial abnormalities are demonstrated. 2. Right maxillary sinus inflammatory changes. Reading Location: [facility]
--- NOTE | 2024-11-06 22:17 | EKG12_ITS ---
Test Reason : STROKE Blood Pressure : */* mmHG Vent. Rate : 98 BPM Atrial Rate : 98 BPM P-R Int : 176 ms QRS Dur : 88 ms QT Int : 328 ms P-R-T Axes : 47 -31 259 degrees QTcB Int : 418 ms Normal sinus rhythm Left axis deviation Minimal voltage criteria for LVH, may be normal variant ( R in aVL ) Nonspecific T wave abnormality Abnormal ECG Confirmed by NAGI TRUONG, JOSE C ([id number]), communications editor JENNIFER GRIMALDO ([id number]) on 11/07/2024 8:27:15 AM Referred By: Confirmed By: JOSE C LAZAR MD
--- NOTE | 2024-11-06 22:17 | CT_ITS ---
PROCEDURE: STROKE CTA HEAD AND NECK WITH CONTRAST REASON FOR EXAM: Acute neurological deficit. TECHNIQUE: Routine 3-dimensional reconstruction imaging of the head and neck arteries was performed. One or more dose reduction techniques were used (e.g., Automated exposure control, adjustment of the mA and/or kV according to patient size, use of iterative reconstruction technique). CONTRAST: Isovue-300 COMPARISON: None. FINDINGS: AORTIC ARCH The visualized aortic arch is normal. The origins of the arch branch vessels are patent. Marked tortuosity. EXTRACRANIAL CAROTIDS The common carotid, internal carotid and external carotid segments are widely patent throughout the neck. Mild atherosclerotic calcifications at the origins of the common carotids. SKULL BASE The petrous, cavernous and supraclinoid segments of the distal internal carotid arteries are patent with normal configuration. The ophthalmic arteries, posterior communicating artery and anterior choroidal artery origins are normal. INTRACRANIAL VASCULATURE Cerebral Arteries: The anterior, middle and posterior cerebral artery distributions are within normal limits. [place] of [place]: The A1 and P1 segments are patent. There is a patent anterior communicating artery with normal configuration. There are small patent posterior communicating arteries with normal configuration. Venous Drainage: Unremarkable. VERTEBROBASILAR SYSTEM The proximal subclavian arteries, both vertebral arteries and basilar artery are widely patent. The cerebellar arteries are within normal limits. NONVASCULAR There is no abnormal intracranial enhancement. The ventricles, cisterns, sulci and parenchymal attenuation are normal. Bone windows show mucoperiosteal thickening, right maxillary sinus. CT/STROKE CTA Head AND Neck W/Con IMPRESSION: 1. No critical stenotic lesions are noted. 2. Mild atherosclerotic calcific changes are identified. 3. No aneurysms or vascular malformations. 4. Right maxillary sinus inflammatory changes. 5. Leftward deviation of the nasal septum. Reading Location: [facility]
--- NOTE | 2024-11-06 22:17 | RAD_ITS ---
PROCEDURE: CHEST 1 VIEW TECHNIQUE: Single frontal image including the chest. COMPARISON: None. FINDINGS: Lungs are clear of pneumonia and congestion. No pleural effusions, thickening, or pneumothorax. Heart and mediastinum are normal. Great vessels unremarkable. No hilar masses. Right total shoulder arthroplasty. Soft tissues are unremarkable. RAD/Chest 1 View IMPRESSION: No active cardiopulmonary disease. Reading Location: [facility]
[2024-11-06 22:20] VITALS: BMI 42.6
--- NOTE | 2024-11-06 22:24 | NURSING ---
2221 - [facility] called and notified of stroke alert.
[2024-11-06 22:25] LABS: Absolute Lymphocyte Count 0.68 X10^3/uL (0.83-4.51); Absolute Neutrophil Count 5.4 X10^3/uL (2.0-7.7); Basophil# 0.04 X10^3/uL; Basophil% 0.6 % (0-1); Eosinophil# 0.13 X10^3/uL; Eosinophils% 1.9 % (0-5); Hematocrit 39.6 % (40-54); Hemoglobin 13.3 g/dL (13.0-16.5); Lymphocyte # 0.68 X10^3/ul (0.83-4.51); Lymphocyte % 10.1 % (19-41); Mean Corp Hgb Conc 33.6 g/dL (32-36); Mean Corpuscular Hgb 31.8 pg (27.0-32.0); Mean Corpuscular Volume 94.7 fL (80-94); Mean Platelet Vol. 11.6 fl (6.2-12.0); Monocyte# 0.47 X10^3/uL; NRBC Flagged by Analyzer 0 % (0-5); Neutrophil # 5.39 X10^3/uL (2.7-7.7); Platelet Count 195 K/mm3 (150-450); RBC Distribution Width CV 13.3 % (11.6-14.6); Red Blood Count 4.18 M/mm3 (4.6-6.2); White Blood Count 6.7 K/mm3 (4.4-11.0)
[2024-11-06 22:34] VITALS: BP 139/75; PULSE 103; RESP 16; O2SAT 94
[2024-11-06 22:35] LABS: Bedside Glucose 198 mg/dL (74-106)
[2024-11-06 22:42] LABS: Anion Gap 12 (5-15); BUN 25 mg/dL (7-18); BUN/Creat Ratio 14.6 RATIO (10-20); Calcium,Total 9.3 mg/dL (8.5-10.1); Chloride 105 mmol/L (98-107); Creatinine, Serum 1.71 mg/dL (0.70-1.30); EST Glomerular Filtration Rate 43 mL/min (>60); Est Glom Filt Rate - Afr Amer 52 mL/min (>60); Estimated Creatinine Clearance 56.99 ml/min; Glucose 207 mg/dL (74-106); Potassium 3.9 mmol/L (3.5-5.1); Sodium Level 139 mmol/L (136-145)
[2024-11-06 22:48] VITALS: BMI 42.6
[2024-11-06 22:51] LABS: International Normalized Ratio 1.1; Partial Thromboplast Time 28.6 Seconds (24.1-36.2); Prothrombin Time (Protime)PT. 14.2 SECONDS (11.7-14.9)
[2024-11-06] MEDS: 0.9% Normal Saline (1000mL) 1,000 ML 999 ML IV (23:12)
[2024-11-06] MEDS: Acetaminophen 500 MG Tablet 1000 MG PO (23:12)
[2024-11-06 23:14] VITALS: BP 151/84; PULSE 101; RESP 18; O2SAT 96
[2024-11-06 23:14] LABS: Bacteria 0 SEEN /hpf (None Seen); Mucous, Urine 0 SEEN /hpf (<or=2+); Red Blood Cells-Urine 0 SEEN /hpf (0-5); Squamous Epithelial Cells - UA 0 SEEN /hpf (0-5); White Blood Cells 0 SEEN /hpf (0-5)
[2024-11-06 23:19] LABS: Magnesium 1.5 mg/dL (1.6-2.6)
[2024-11-06 23:23] LABS: Color, Urine Yellow (Yellow); Glucose, Dipstick Normal (Normal); Ketone-Dipstick 15 mg/dl (Negative); Leukocyte Esterase-Dipstick Negative /ul (Negative); Nitrite-Dipstick Negative (Negative); Occult Blood-Urine 10 /ul (Negative); Protein-Dipstick 30 mg/dl (Negative); Urine Bilirubin Dipstick Negative (Negative); Urine Clarity Clear (Clear); Urine Urobilinogen Normal (Normal)
[2024-11-06 23:49] VITALS: BP 131/78; PULSE 93; RESP 19; TEMP 37; O2SAT 96
[2024-11-07] VITALS (11 sets, daily range): BP systolic 120–163; BP diastolic 65–104; PULSE 90–105; RESP 17–20; TEMP 36.6–37.7; O2SAT 94–97; BMI 41.9
--- NOTE | 2024-11-07 00:29 | EDS_ITS ---
HPI History of Present Illness Chief Complaint: General Illness Informant: patient and spouse/S.O. Narrative Narrative: Patient is a 64-year-old male with past medical history of hypertension hyperlipidemia and diabetes. Patient reports that he is just felt unwell today and states that at around 7 PM he had increased weakness that was localized to the left side and he seemed confused. She reports symptoms have improved but not resolved and with concern of a potential stroke he was brought to the hospital for evaluation [facility] Medical History Obesity Hyperlipidemia Essential hypertension Atherosclerosis of coronary artery without angina pectoris MARKOS (obstructive sleep apnea) History of appendicitis GERD (gastroesophageal reflux disease) Diabetes Home Medications ?Medication ?Instructions ?Recorded ?Last Taken ?Type atorvastatin 40 mg tablet 40 mg PO QHS 03/02/14 Unknow n History multivitamin 1 tab PO DAILY 03/02/14 Unkn own History omeprazole 20 mg capsule,delayed 20 mg PO DAILY 03/03/14 History release aspirin 81 mg chewable tablet 81 mg PO DAILY 12/17/20 Unknown History lisinopril 20 1 tab PO BID 12/17/20 Unknow n History mg-hydrochlorothiazide 12.5 mg tablet metformin 500 mg tablet 1,000 mg PO BID 01/21/21 Unk nown History glimepiride 1 mg tablet 1 mg PO BID 11/26/21 Unknown History propranolol 60 mg tablet 60 mg PO Q12H 11/06/24 Unkno wn History Allergy/AdvReac Type Severity Reaction Status Date / Time No Known Allergies Allergy Verified 11/06/24 22:09 Family History Father Diabetes Heart disease Hypertension CAD (coronary artery disease) Surgical History History of appendectomy History of carpal tunnel surgery History of fracture of leg History of left heart catheterization (03/03/14) History of rotator cuff surgery Social History household members: significant other Smoking Status: Former smoker Tobacco: How many years used: 10 Smokeless tobacco user: chewing tobacco and other how long ago did patient quit smokin years ago alcohol intake: current alcohol intake frequency: holidays/special occasions only Alcohol type: beer substance use type: does not use caffeine: Yes Type: tea Number of servings: 2 seatbelt use: never do you feel safe at home: Yes ROS ROS ED Constitutional Constitutional ED: Reports other Details: Positive generalized fatigue/weakness ; Denies chills or fever(s) Eyes Eyes: Denies blurry vision or change in vision ENT ENT ED: Reports rhinorrhea; Denies sore throat Cardiovascular Cardiovascular: Denies chest pain Respiratory/Chest Respiratory/Chest: Denies cough or dyspnea Gastrointestinal Gastrointestinal: Denies abdominal pain, diarrhea, nausea or vomiting Genitourinary Genitourinary ED: Denies dysuria Musculoskeletal Musculoskeletal: Reports myalgias Integumentary Denies rash Neurologic Neurologic: Reports weakness; Denies headache(s) Hematologic/Lymphatic Hematologic/Lymphatic: Denies easy bleeding or easy bruising EXAM Physical Exam Const Vital Signs: 11/06/24 22:12 11/06/24 22:25 11/06/24 22:34 Temperature 100.3 F H Temperature Source Oral Pulse Rate 102 H 103 H Respiratory Rate 22 H 16 Respiratory Effort Respiratory Pattern Blood Pressure 158/81 H 139/75 H Blood Pressure Mean 106 96 Pulse Ox 95 94 Oxygen Delivery Method Room Air Room Air Room Air 11/06/24 22:49 11/06/24 23:14 11/06/24 23:49 Temperature 98.6 F Temperature Source Oral Pulse Rate 101 H 93 Respiratory Rate 18 19 H Respiratory Effort Short of Breath Respiratory Pattern Tachypnea Blood Pressure 151/84 H 131/78 H Blood Pressure Mean 106 95 Pulse Ox 96 96 Oxygen Delivery Method Room Air Room Air 11/07/24 00:30 11/07/24 00:55 Temperature 98.6 F Temperature Source Oral Pulse Rate 91 91 Respiratory Rate 18 17 Respiratory Effort Respiratory Pattern Blood Pressure 132/73 H 130/74 H Blood Pressure Mean 92 92 Pulse Ox 96 97 Oxygen Delivery Method Room Air Room Air Positive well nourished, well developed and obese General Appearance ED: well developed; Negative for pallor Nutritional Appearance: obese HEENT HEENT Narrative: Nasal mucosa is hyperemic and boggy There is cobblestoning noted in the posterior pharynx consistent with sinus drainage without airway edema or compromise; no secondary findings to suggest infection Eyes PERRL and EOMs intact bilaterally General Eye ED: Negative for scleral icterus Neck supple Neck Narrative: No nuchal rigidity or meningeal signs Resp normal respiratory effort Resp Narrative: Breath sounds are diminished throughout with faint rhonchi noted in bilateral bases but no signs of respiratory distress Cardio regular rate and regular rhythm Rate: other Other Details: Radial and carotid pulses are equal and symmetric GI normal to inspection, nondistended, normoactive bowel sounds, non-tender, non-distended and no masses GI Narrative: No voluntary guarding or rigidity or pulsatile mass Auscultation: normoactive bowel sounds Palpation: soft Extremity normal to inspection Neuro oriented x3, CN's II-XII intact bilaterally and no sensory deficits noted Neuro Narrative: GCS of 15 Cranial nerves II through XII are grossly intact without focal neurologic deficit No pronator drift no dysmetria no truncal ataxia NIH stroke scale score of 0 Sensorium / Orientation: alert Psych mental status grossly normal Skin no rashes or lesions noted and no wounds General Skin Exam: Negative for jaundice or pallor MDM MDM MDM Narrative Medical decision making narrative: Patient arrived to the ER with a low-grade fever and otherwise stable vitals. reported left-sided weakness and confusion around 7 PM and with his risk factors of hypertension hyperlipidemia and diabetes stroke alert was activated. However upon his arrival to the ER his NIH stroke scale score is 0. He does have generalized weakness but no focal deficit and there is no confusion. He was evaluated with a noncontrast CT of the head as well as CTA of the head and neck to check potential bleed mass stricture or LVO. CTs were negative. [facility] neurology was also consulted based on the activation of stroke alert and agree that there is no focal findings at this time and therefore do not recommend providing TNK. They state with his generalized weakness and low-grade fever to workup up for more of a metabolic process causing the symptoms. Secondary to this a chest x-ray was obtained to assess for pneumonia but was normal. Electrolytes did not reveal any clinically significant findings such as significant hypokalemia or hyponatremia. He has mild elevation to his kidney function but not enough to be concern for acute kidney injury. Urine sample shows no sign of infection either and he tested negative for influenza COVID and RSV. In the ER his NIH has remained 0 and after receiving hydration and Tylenol he does report feeling better. However as reported left-sided weakness with confusion that resolved upon arrival to the ER this could be a TIA and patient does have significant risk factors for it. Therefore I feel the safest option is placement in the hospital overnight to complete the stroke workup. The hospitalist was contacted secondary to this and agrees to accept the patient to the hospital to continue his medical evaluation History & Record Review Discussion w/independent historian: Patient and Significant other Lab Data Attestation: I reviewed the patient's lab results. Labs: Laboratory Results - last 24 hr 11/06/24 11/06/24 11/06/24 22:16 22:17 23:00 WBC 6.7 RBC 4.18 L Hgb 13.3 Hct 39.6 L MCV 94.7 H MCH 31.8 MCHC 33.6 RDW Std Deviation 46.0 H RDW Coeff of Isidro 13.3 Plt Count 195 MPV 11.6 Immature Gran % (Auto) 0.400 Neut % (Auto) 80.0 H Lymph % (Auto) 10.1 L [place] % (Auto) 7.0 Eos % (Auto) 1.9 Baso % (Auto) 0.6 Absolute Neuts (auto) 5.4 Absolute Lymphs (auto) 0.68 L Nucleated RBC % 0 PT 14.2 INR 1.1 APTT 28.6 Sodium 139 Potassium 3.9 Chloride 105 Carbon Dioxide 22.0 Anion Gap 12 BUN 25 H Creatinine 1.71 H Estim Creat Clear Calc 56.99 Est GFR (MDRD) Af Amer 52 L Est GFR (MDRD) Non-Af 43 L BUN/Creatinine Ratio 14.6 Glucose 207 H Calcium 9.3 Magnesium 1.5 L TSH 0.980 Urine Color Yellow Urine Clarity Clear Urine pH 6.0 Ur Specific [place] 1.010 Urine Protein 30 H Urine Glucose (UA) Normal Urine Ketones 15 H Urine Occult Blood 10 H Urine Nitrite Negative Urine Bilirubin Negative Urine Urobilinogen Normal Ur Leukocyte Esterase Negative Urine RBC 0 SEEN Urine WBC 0 SEEN Ur Squamous Epith Cells 0 SEEN Urine Bacteria 0 SEEN Urine Mucus 0 SEEN POC Glucose 198 H Radiography Diagnostic Testing: Clinical Impression(s) from Imaging Studies Brain CT 11/06/24 22:17 IMPRESSION: 1. No acute intracranial abnormalities are demonstrated. 2. Right maxillary sinus inflammatory changes. Reading [facility] Chest X-Ray 11/06/24 22:17 IMPRESSION: No active cardiopulmonary disease. Reading Location: [facility] Head/Neck CTA 11/06/24 22:17 IMPRESSION: 1. No critical stenotic lesions are noted. 2. Mild atherosclerotic calcific changes are identified. 3. No aneurysms or vascular malformations. 4. Right maxillary sinus inflammatory changes. 5. Leftward deviation of the nasal septum. Reading Location: [facility] Chest x-ray as interpreted by the emergency medicine physician reveals no acute infiltrate pneumothorax or pleural effusion Management Discussion w/another healthcare provider: Hospitalist and Banana Expert Discharge Plan Triage Chief Complaint: General Illness ED Provider: Rafa Pandey Dx/Rx/DC Orders Clinical Impression: Essential hypertension, Hyperlipidemia, Non-insulin dependent diabetes mellitus, Weakness Prescriptions: No Action glimepiride 1 mg tablet 1 mg PO BID Patient Comments: TAKE 1 TABLET BY MOUTH DAILY multivitamin 1 TABLET tablet 1 tab PO DAILY atorvastatin 40 MG tablet 40 mg PO QHS omeprazole 20 MG capsule 20 mg PO DAILY lisinopril-hydrochlorothiazide 20-12.5 mg tablet 1 tab PO BID aspirin 81 mg tablet,chewable 81 mg PO DAILY metformin 500 mg tablet 1,000 mg PO BID propranolol 60 mg tablet 60 mg PO Q12H Primary Care Provider: Anuradha Gastelum Referrals: Anuradha Gastelum, [facility] [Primary Care Provider] - Print Language: Setswana Disposition Disposition: Acute Care Hospital [facility]
--- NOTE | 2024-11-07 00:56 | PCM.HP.STD ---
[facility] - General General Date of Admission: 11/07/24 Date of Service: 11/07/24 Chief Complaint: Left-sided Weakness and Confusion. HPI Narrative MAGED SOTO, is a 64 M with a past medical history of essential hypertension; on propranolol and lisinopril-hydrochlorothiazide, hyperlipidemia; on atorvastatin, remote tobacco abuse (quit ~1994), morbid obesity; with BMI of 42 this admission, MARKOS; on CPAP, NAFLD, DM-2; of unknown control on metformin and glimepiride, diabetic neuropathy, history or renal calculi, history of appendicitis; s/p appendectomy, history of LHC (2013), history of carpal tunnel syndrome; s/p release, history of rotator cuff surgery, remote history of leg fracture x 2 and OA; with chronic Right shoulder pain who presents to [facility] ER complaining of Left-sided weakness and confusion. Mr. No reports his acute symptoms began at approximately 7:00 PM on the evening of November 06, 2024 when he noticed the abrupt-onset of weakness in his Left side, primarily in his Left lower extremity with numbness extending from the thigh down to the foot. He went on to state that he felt unwell today with tremors of both hands but generally but he denies recent significant illness, medication changes, overexertion or traumatic injury. His was present with him and was concerned for possible stroke so she drove him into the ER for further evaluation treatment. He denies associated headache, visual changes, chest pain, shortness of breath, cough, dysuria or similar previous episodes but he does admit to generalized weakness, runny nose and myalgias. By the time of his ER evaluation his symptoms already started to improve but he was noted to have a fever of 100.3 ?F with CT evidence of Right maxillary sinusitis and no other acute intracranial changes complicated by clinical evidence of transient Left-sided weakness and confusion consistent with suspected TIA versus CVA and he was then admitted to the PCU under observation status for a stay that is expected to be less than 2 midnights. [facility] Medical History MARKOS (obstructive sleep apnea) Obesity Hyperlipidemia Essential hypertension Atherosclerosis of coronary artery without angina pectoris History of appendicitis GERD (gastroesophageal reflux disease) Diabetes Home Medications ?Medication ?Instructions ?Recorded ?Last Taken ?Type atorvastatin 40 mg tablet 40 mg PO QHS 03/02/14 Unknown History multivitamin 1 tab PO DAILY 03/02/14 Unknown History omeprazole 20 mg capsule,delayed 20 mg PO DAILY 03/02/14 03/03/14 History release aspirin 81 mg chewable tablet 81 mg PO DAILY 12/17/20 Unknown History lisinopril 20 1 tab PO BID 12/17/20 Unknown History mg-hydrochlorothiazide 12.5 mg tablet metformin 500 mg tablet 1,000 mg PO BID 01/21/21 Unknown History glimepiride 1 mg tablet 1 mg PO BID 11/26/21 Unknown History propranolol 60 mg tablet 60 mg PO Q12H 11/06/24 Unknown History Allergy/AdvReac Type Severity Reaction Status Date / Time No Known Allergies Allergy Verified 11/06/24 22:09 Family History Father Diabetes Heart disease Hypertension CAD (coronary artery disease) Surgical History History of rotator cuff surgery History of left heart catheterization (03/03/14) History of appendectomy History of fracture of leg History of carpal tunnel surgery Social History household members: significant other Smoking Status: Former smoker Tobacco: How many years used: 10 Smokeless tobacco user: chewing tobacco and other how long ago did patient quit smokin years ago alcohol intake: current alcohol intake frequency: holidays/special occasions only Alcohol type: beer substance use type: does not use caffeine: Yes Type: tea Number of servings: 2 seatbelt use: never do you feel safe at home: Yes ROS ROS Narrative Review of Systems: Constitutional: Patient admits to fever confirmed in ER along with fatigue and generalized weakness. Eyes: Patient denies changes vision or discharge from eyes. ENT: Patient admits to runny nose but he denies sore throat or ear pain. Resp: Patient denies shortness of breath or cough. CV: Patient denies chest pain, palpitations, heart racing or lower extremity edema. GI: Patient denies abdominal pain, nausea, vomiting, diarrhea or constipation. : Patient denies dysuria or hematuria. MSK: Patient admits to myalgias particularly with numbness and weakness and Left lower extremity that is since resolved. Skin: Patient denies rash, abscess, jaundice or wounds. Psych: Patient denies symptoms of uncontrolled depression or anxiety and is very happily . Neuro: Patient admits to the abrupt onset of LLE weakness with numbness and tingling that began to resolve upon arrival in the ER. He denies headache. Allergy: Patient denies lip swelling, tongue swelling or urticaria. Hematology: Patient denies easy bleeding or easy bruisability. Endocrinology: Patient denies polyuria, polydipsia or polyphagia. 14 point review systems otherwise negative save for positives noted above in HPI. Vital Signs Vital Signs Vital Signs: 11/06/24 22:12 11/06/24 22:25 11/06/24 22:34 Temperature 100.3 F H Temperature Source Oral Pulse Rate 102 H 103 H Respiratory Rate 22 H 16 Respiratory Effort Respiratory Pattern Blood Pressure 158/81 H 139/75 H Blood Pressure Mean 106 96 Pulse Ox 95 94 Oxygen Delivery Method Room Air Room Air Room Air 11/06/24 22:49 11/06/24 23:14 11/06/24 23:49 Temperature 98.6 F Temperature Source Oral Pulse Rate 101 H 93 Respiratory Rate 18 19 H Respiratory Effort Short of Breath Respiratory Pattern Tachypnea Blood Pressure 151/84 H 131/78 H Blood Pressure Mean 106 95 Pulse Ox 96 96 Oxygen Delivery Method Room Air Room Air 11/07/24 00:30 Temperature 98.6 F Temperature Source Oral Pulse Rate 91 Respiratory Rate 18 Respiratory Effort Respiratory Pattern Blood Pressure 132/73 H Blood Pressure Mean 92 Pulse Ox 96 Oxygen Delivery Method Room Air Weight Weight: 288 lb 12.889 oz Body Mass Index (BMI) 42.6 Physical Exam Const alert, oriented x3 and no apparent distress Constitutional Narrative: Morbidly obese and nontoxic in appearance. General Appearance: cooperative HEENT normocephalic, head/scalp atraumatic, hearing grossly normal bilaterally and moist oral mucous membranes HEENT Narrative: Nasal mucosa is hyperemic and boggy and 'cobblestoning' noted in the posterior pharynx. Eyes PERRL, EOMs intact bilaterally and conjunctivae normal Neck no lymphadenopathy, supple and no JVD Resp normal respiratory effort Resp Narrative: Diminished breath sounds throughout with occasional rhonci. Auscultation: rhonchi Cardio regular rate and regular rhythm GI normal to inspection, nondistended, normoactive bowel sounds, soft to palpation, non-tender and non-distended GI Narrative: Morbidly obese. Extremity normal to inspection, full ROM and no clubbing, cyanosis or edema Skin Skin Narrative: Patient has no evidence of rash, abscess, wounds or jaundice. Neuro oriented x3, CN's II-XII intact bilaterally, moves all extremities and no focal motor deficits Sensorium / Orientation: awake, alert, oriented to person, oriented to place and oriented to time Speech: speech normal Psych affect normal Results Medical Records Data Attestation: I reviewed the patient's medical records Lab / Micro Data Attestation: I reviewed the patient's lab results. 11/06/24 22:17 11/06/24 22:17 Labs: Laboratory Results - last 24 hr 11/06/24 22:16: POC Glucose 198 H 11/06/24 22:17: WBC 6.7, RBC 4.18 L, Hgb 13.3, Hct 39.6 L, MCV 94.7 H, MCH 31.8, MCHC 33.6, RDW Std Deviation 46.0 H, RDW Coeff of Isidro 13.3, Plt Count 195, MPV 11.6, Immature Gran % (Auto) 0.400, Neut % (Auto) 80.0 H, Lymph % (Auto) 10.1 L, [place] % (Auto) 7.0, Eos % (Auto) 1.9, Baso % (Auto) 0.6, Absolute Neuts (auto) 5.4, Absolute Lymphs (auto) 0.68 L, Nucleated RBC % 0, PT 14.2, INR 1.1, APTT 28.6, Sodium 139, Potassium 3.9, Chloride 105, Carbon Dioxide 22.0, Anion Gap 12, BUN 25 H, Creatinine 1.71 H, Estim Creat Clear Calc 56.99, Est GFR (MDRD) Af Amer 52 L, Est GFR (MDRD) Non-Af 43 L, BUN/Creatinine Ratio 14.6, Glucose 207 H, Calcium 9.3, Magnesium 1.5 L, TSH 0.980 11/06/24 23:00: Urine Color Yellow, Urine Clarity Clear, Urine pH 6.0, Ur Specific [place] 1.010, Urine Protein 30 H, Urine Glucose (UA) Normal, Urine Ketones 15 H, Urine Occult Blood 10 H, Urine Nitrite Negative, Urine Bilirubin Negative, Urine Urobilinogen Normal, Ur Leukocyte Esterase Negative, Urine RBC 0 SEEN, Urine WBC 0 SEEN, Ur Squamous Epith Cells 0 SEEN, Urine Bacteria 0 SEEN, Urine Mucus 0 SEEN Micro: Microbiology 11/06/24 23:00 Mucosa - Nose SARS-CoV-2, Influenza & RSV (PCR) - Final Imaging Radiology Impression Brain CT 11/06/24 22:17 IMPRESSION: 1. No acute intracranial abnormalities are demonstrated. 2. Right maxillary sinus inflammatory changes. Reading Location: [facility] Chest X-Ray 11/06/24 22:17 IMPRESSION: No active cardiopulmonary disease. Reading Location: [facility] Head/Neck CTA 11/06/24 22:17 IMPRESSION: 1. No critical stenotic lesions are noted. 2. Mild atherosclerotic calcific changes are identified. 3. No aneurysms or vascular malformations. 4. Right maxillary sinus inflammatory changes. 5. Leftward deviation of the nasal septum. Reading Location: [facility] Assessment & Plan Assessment/Plan (1) TIA (transient ischemic attack): (2) Left-sided weakness: (3) Benign essential tremor: (4) Confusion: (5) Maxillary sinusitis, acute: QUALIFIERS: Recurrence: not specified as recurrent Qualified Code(s): J01.00 - Acute maxillary sinusitis, unspecified (6) Hypomagnesemia: (7) Obesity: QUALIFIERS: Obesity type: unspecified obesity type Obesity classification: adult class 3 (BMI >= 40) Serious obesity comorbidity presence: with serious comorbidity Body mass index: BMI 40.0-44.9 Qualified Code(s): E66.813 - Obesity, class 3; E66.01 - Morbid (severe) obesity due to excess calories; Z68.41 - Body mass index [BMI] 40.0-44.9, adult (8) MARKOS (obstructive sleep apnea): (9) Essential hypertension: (10) Hyperlipidemia: QUALIFIERS: Hyperlipidemia type: unspecified Qualified Code(s): E78.5 - Hyperlipidemia, unspecified (11) Non-insulin dependent diabetes mellitus: PLAN: Plan 1. CVA vs TIA; with the abrupt-onset of transient Left-sided weakness and confusion along with Right > Left UE tremors that are likely essential - Admit to PCU under observation status. Continue BASA and statin and check Lipid Profile, TSH, B12, folate, HgbA1c, RAFI and UDS to evaluate for potential reversible causes of confusion. [facility] teleneurology help is greatly appreciated. 2. CT evidence of Right maxillary sinusitis and no other acute intracranial changes with corresponding Fever of 100.3 degrees Fahrenheit, rhinitis with bogy nasal mucosa and 'cobblestoning' noted in the posterior pharynx complicating #1 - Start empiric IV ceftriaxone and IV azithromycin plus start probiotic. Give acetaminophen prn pain or fever. Give Robitussin DM prn cough and congestion. 3. Hypomagnesemia of 1.5 mg/dL present on admission compounding #1 & #2 - Give supplemental magnesium and then recheck level to confirm repletion. 4. Morbid Obesity; with BMI of 42 this admission plus MARKOS; on CPAP adding to the medical complexity of #1 - #3 - Weight loss will be recommended. Check TSH. Continue nocturnal CPAP as before. This complicates his case and may hamper recovery. 5. Essential Hypertension; on propranolol and lisinopril-hydrochlorothiazide - Hold scheduled antihypertensives to allow for 'permissive hypertension' until CVA definitively ruled out on MRI. 6. Hyperlipidemia; on atorvastatin - Resume statin and check Lipid Profile as noted above. 7. DM-2; of unknown control on metformin and glimepiride with diabetic neuropathy - ADA diet. FSBS q. AC/HS plus SSI. Check HgbA1c to objectively assess quality of diabetic control. 8. Remote tobacco abuse (quit ~1994) - Noted. 9. NAFLD - Stable. 10. History or renal calculi - Noted with no evidence of recurrence at this time. 11. History of appendicitis; s/p appendectomy - Noted. 12. History of LHC (2013) - Noted. 13. History of carpal tunnel syndrome; s/p release - Noted. 14. History of rotator cuff surgery - Noted. 15. Remote history of leg fracture x 2 - Noted. 16. OA; with chronic Right shoulder pain - Give acetaminophen prn. 17. DVT prophylaxis - Heparin 5,000U sq TID plus SCD's. Total time: Approximately (but not less than) 70 minutes. Charges/Coding Visit Charges OBSV E&M: 94262 Observ/hosp same date L2
--- NOTE | 2024-11-07 03:03 | MRI_ITS ---
PROCEDURE: BRAIN WITHOUT CONTRAST REASON FOR EXAM: Left-sided weakness, confusion. TECHNIQUE: Multiplanar, multisequence MRI of the brain without intravenous gadolinium-based contrast. COMPARISON: 11/06/2024 CT. FINDINGS: Moderate global parenchymal atrophy. Moderate chronic microvascular ischemia. No evidence of acute hemorrhage or infarction. Ixyuv-[id number]-ezjr-left maxillary sinus mucosal thickening. The orbits are unremarkable. MRI/Brain without Contrast IMPRESSION: No acute intracranial abnormality. Parenchymal atrophy and chronic microvascular ischemia. Reading Location: [id number]
--- NOTE | 2024-11-07 03:03 | ECHOD_ITS ---
Reason For Study: TIA/CVA Procedure This was a 2D Doppler, Color Flow transthoracic echocardiogram. The study was technically difficult. Exam performed portable in patient room. Left Ventricle Normal LV size. Moderate concentric left ventricular hypertrophy. The left ventricular ejection fraction is 60 %. Stage 1 diastolic dysfunction. No regional wall motion abnormalities noted. Right Ventricle Normal RV size. Normal systolic function. Atria Normal left atrium. Normal right atrium. Mitral Valve Normal mitral valve. Tricuspid Valve Normal tricuspid valve. Aortic Valve Trisinus/trileaflet aortic valve. Pulmonic Valve Normal pulmonic valve. Great Vessels Normal aortic root. The pulmonary artery is normal size. Normal inferior vena cava. Pericardium/Pleural No pericardial effusion. MMode/2D Measurements & Calculations LVIDd: 4.9 cm IVSd: 1.8 cm LVOT diam: 2.3 cm LVIDs: 2.2 cm LVPWd: 1.4 cm LVOT area: 4.2 cm2 RVDd: 3.6 cm FS: 54.9 % _ asc Aorta Diam: 3.5 cm LAV(MOD-bp): 40.7 ml LVAd ap4: 25.9 cm2 LAV(MOD-bp) Indexed: 17.0 ml/m2 LVLd ap4: 8.6 cm LAV(MOD-sp2): 41.8 ml EDV(MOD- sp4): 65.3 ml LAV(MOD-sp4): 33.5 ml EDV(sp4- el): 66.7 ml LVAs ap4: 15.8 cm2 LVLs ap4: 7.6 cm ESV(MOD- sp4): 29.8 ml ESV(sp4- el): 28.1 ml EF(MOD- sp4): 54.4 % EF(sp4- el): 57.9 % _ LVAd ap2: 27.8 cm2 SV(MOD-sp4): 35.5 ml SV(MOD- sp2): 41.9 ml LVLd ap2: 8.8 cm SI(MOD-sp4): 14.8 ml/m2 SI(MOD- sp2): 17.5 ml/m2 EDV(MOD-sp2): 73.1 ml EDV(sp2-el): 74.9 ml LVAs ap2: 16.6 cm2 LVLs ap2: 7.8 cm ESV(MOD-sp2): 31.2 ml ESV(sp2-el): 30.2 ml EF(MOD-sp2): 57.3 % _ SV(sp4-el): 38.6 ml Ao sinus diam: 3.[address] Junction: 2.8 cm _ LA dimension(2D): 4.8 cm LA A4 area: 13.2 cm2 RA A4 area: 7.5 cm2 _ TAPSE: 1.7 cm Time Measurements MV dec time: 0.12 sec Doppler Measurements & Calculations MV E max roberto: 53.5 cm/sec Lat Peak E' Roberto: 10.8 cm/sec Med Peak E' Roberto: 7.2 cm/sec MV A max roberto: 75.2 cm/sec E/E' lat: 5.0 E/E' med: 7.4 MV E/A: 0.71 _ MV dec slope: 442.6 cm/sec2 Ao V2 max: 143.2 cm/sec LV V1 max: 86.8 cm/sec Ao max P.2 mmHg LV V1 max P.0 mmHg Ao V2 mean: 112.0 cm/sec LV V1 mean P.9 mmHg Ao mean P.3 mmHg LV V1 mean: 67.6 cm/sec Ao V2 VTI: 21.1 cm LV V1 VTI: 12.9 cm AV (velocity ratio): 0.61 ARIA(I,D): 2.6 cm2 ARIA(V,D): 2.5 cm2 _ SV(LVOT): 53.9 ml PA V2 max: 119.0 cm/sec ECHO/Echo Complete Interpretation Summary Normal LV size. Moderate concentric left ventricular hypertrophy. The left ventricular ejection fraction is 60 %. Stage 1 diastolic dysfunction. Ordering Physician: Pradip Amezcua Performed By: Pao Lopez RDCS
[2024-11-07] MEDS: Heparin Injection (Vial) 5,000 UNIT/ML VIAL 5000 UNIT SC ×2 (04:14→16:37)
[2024-11-07] MEDS: 0.9% Normal Saline (1000mL) 1,000 ML 50 ML IV (04:14)
--- NOTE | 2024-11-07 04:46 | CPS ---
Patient bringing in own PAP machine for night time use
[2024-11-07 07:56] LABS: Bedside Glucose 174 mg/dL (74-106)
[2024-11-07] MEDS: Azithromycin 500 MG in 0.9% Normal Saline (250mL Bag) 250 ML 255 MG IV (08:10)
[2024-11-07] MEDS: Magnesium Sulfate 2 GM in Dextrose 5%-Water (100mL Bag) 100 ML IV (08:12)
[2024-11-07] MEDS: Lactobacillis Acidophilus 1 CAP PO ×2 (08:18→16:34)
[2024-11-07] MEDS: Aspirin 81 MG TAB.CHEW PO (08:19)
[2024-11-07] MEDS: Pantoprazole Sodium 20 MG Tablet PO (08:19)
[2024-11-07] MEDS: Multivitamins,Therapeutic Tablet 1 TABLET PO (08:19)
[2024-11-07 08:28] LABS: Alcohol, Blood (Medical)-Serum < 3.0 mg/dL
[2024-11-07 10:20] LABS: Vitamin B12 310 pg/mL (211-911)
[2024-11-07 10:29] LABS: Cholesterol 134 mg/dL (200); High Density Lipoprotein 38 mg/dL; Triglycerides 297 mg/dL; Very Low Density Lipoprotein 59 mg/dL (5-40)
--- NOTE | 2024-11-07 10:35 | PN.HOSP_ITS ---
Reason for Visit Reason for Visit: Diagnoses Morbid (severe) obesity due to excess calories (11/07/24) Obesity, class 3 (11/07/24) Obesity, unspecified (11/07/24) Hyperlipidemia, unspecified (11/07/24) Hypomagnesemia (11/07/24) Essential tremor (11/07/24) Transient cerebral ischemic attack, unspecified (11/07/24) Obstructive sleep apnea (adult) (pediatric) (11/07/24) Essential (primary) hypertension (11/07/24) Atherosclerotic heart disease of [place] coronary artery without angina pectoris (11/07/24) Acute maxillary sinusitis, unspecified (11/07/24) Disorientation, unspecified (11/07/24) Weakness (11/07/24) Body mass index [BMI] 40.0-44.9, adult (11/07/24) Objective Data Objective Data Vital Signs: Vital Signs Temp Pulse Resp BP Pulse Ox O2 Del Method 99.9 F H 95 19 H 141/68 H 95 Room Air 11/07/24 07:04 11/07/24 07:04 11/07/24 07:04 11/07/24 07:04 11/07/24 07:20 11/07/24 08:15 Oxygen Delivery Method Room Air Weight: 128.911 kg Body Mass Index (BMI) 41.9 Intake & Output: Intake and Output for Last 24 Hours 11/05/24 11/06/24 11/07/24 23:59 23:59 23:59 Intake Total 1450.77 / 1450.77 Output Total 200 / 200 Balance 1250.77 / 1250.77 Lab / Micro Data 11/06/24 22:17 11/06/24 22:17 Labs: Laboratory Results - last 24 hr 11/06/24 22:16: POC Glucose 198 H 11/06/24 22:17: WBC 6.7, RBC 4.18 L, Hgb 13.3, Hct 39.6 L, MCV 94.7 H, MCH 31.8, MCHC 33.6, RDW Std Deviation 46.0 H, RDW Coeff of Isidro 13.3, Plt Count 195, MPV 11.6, Immature Gran % (Auto) 0.400, Neut % (Auto) 80.0 H, Lymph % (Auto) 10.1 L, [place] % (Auto) 7.0, Eos % (Auto) 1.9, Baso % (Auto) 0.6, Absolute Neuts (auto) 5.4, Absolute Lymphs (auto) 0.68 L, Nucleated RBC % 0, PT 14.2, INR 1.1, APTT 28.6, Sodium 139, Potassium 3.9, Chloride 105, Carbon Dioxide 22.0, Anion Gap 12, BUN 25 H, Creatinine 1.71 H, Estim Creat Clear Calc 56.99, Est GFR (MDRD) Af Amer 52 L, Est GFR (MDRD) Non-Af 43 L, BUN/Creatinine Ratio 14.6, Glucose 207 H , Calcium 9.3, Magnesium 1.5 L, Triglycerides Cancelled, Cholesterol Cancelled, LDL Cholesterol Cancelled, VLDL Cholesterol Cancelled, HDL Cholesterol Cancelled, Folate Cancelled, TSH 0.980 11/06/24 23:00: Urine Color Yellow, Urine Clarity Clear, Urine pH 6.0, Ur Specific [place] 1.010, Urine Protein 30 H, Urine Glucose (UA) Normal, Urine Ketones 15 H, Urine Occult Blood 10 H, Urine Nitrite Negative, Urine Bilirubin Negative, Urine Urobilinogen Normal, Ur Leukocyte Esterase Negative, Urine RBC 0 SEEN, Urine WBC 0 SEEN, Ur Squamous Epith Cells 0 SEEN, Urine Bacteria 0 SEEN, Urine Mucus 0 SEEN 11/07/24 07:09: Triglycerides 297 H, Cholesterol 134, LDL Cholesterol 37, VLDL Cholesterol 59 H, HDL Cholesterol 38 L, Vitamin B12 310, Folate 29.60, Ethyl Alcohol < 3.0 11/07/24 07:32: POC Glucose 174 H Micro: Microbiology 11/06/24 23:00 Mucosa - Nose SARS-CoV-2, Influenza & RSV (PCR) - Final Radiography Diagnostic Testing: Radiology Impression Brain CT 11/06/24 22:17 IMPRESSION: 1. No acute intracranial abnormalities are demonstrated. 2. Right maxillary sinus inflammatory changes. Reading Location: [facility] Chest X-Ray 11/06/24 22:17 IMPRESSION: No active cardiopulmonary disease. Reading Location: [facility] Head/Neck CTA 11/06/24 22:17 IMPRESSION: 1. No critical stenotic lesions are noted. 2. Mild atherosclerotic calcific changes are identified. 3. No aneurysms or vascular malformations. 4. Right maxillary sinus inflammatory changes. 5. Leftward deviation of the nasal septum. Reading Location: [facility] Physical Exam Narrative GENERAL: cooperative HEENT: Atraumatic; normocephalic EYES; Anicteric, Normal Conjunctiva NECK; supple, normal thyroid, RESPIRATORY: Diminished to auscultation CARDIOVASCULAR: Regular S1 S2, GI: soft, normoactive bowel sounds, : No Renal angle tenderness; EXTREMITIES: No edema, no clubbing, MUSCULOSKELETAL: no muscle wasting NEURO: Awake; no lateralizing signs. SKIN: No Rash PSYCH; Flat affect Assessment & Plan Assessment/Plan (1) TIA (transient ischemic attack): (2) Left-sided weakness: (3) Essential hypertension: (4) Hyperlipidemia: QUALIFIERS: Hyperlipidemia type: unspecified Qualified Code(s): E 78.5 - Hyperlipidemia, unspecified PLAN: Plan Patient is a 64-year-old gentleman who was brought to the emergency department by the with complaints of patient being confused and experiencing left- sided weakness 1. Suspected CVA ? Patient presented with left-sided weakness. Admitted to monitored bed for subsequent management. As part of patient's evaluation every 4 neurochecks ordered in addition to 2D echo MRI and [facility] teleneurology. Patient was started on antiplatelet therapy with aspirin as well as atorvastatin 2. Acute right maxillary sinusitis ? Patient is on patient CT finding. Patient was started on antibiotics 3. Hypomagnesemia ? Corrected per protocol 4. Class III obesity with BMI of 42 ? Complicating care weight loss advised 5. Essential hypertension ? Plan is to allow for permissive hypertension until stroke is ruled out 6. Dyslipidemia ?Patient is on statin therapy, continued at home dose 7. GERD ? On PPI 8. Diabetes mellitus type II -patient's oral hypoglycemics held. Placed on long acting insulin, Accu-Cheks a.c. and at bedtime and covered with sliding scale insulin 9. Nonalcoholic fatty liver disease ? Patient to follow-up with primary care physician 10 . DVT prophylaxis - Heparin 5,000U sq Time spent in the patient's overall evaluation,decision-making process, review of diagnostic data, adjustment of management, discussion with other providers, nursing nursing and ancillary staff involved in patient's care documentation, ... Minutes
[2024-11-07 11:23] LABS: Amphetamine Urine NEGATIVE (<1000 ng/mL); Barbiturate Urine VISTA NEGATIVE (< 200 ng/mL); Benzodiazepine Urine VISTA NEGATIVE (< 200 ng/mL); Cocaine Urine VISTA NEGATIVE (< 300 ng/mL); Ecstacy Urine VISTA NEGATIVE (< 500 ng/mL); Methadone Urine VISTA NEGATIVE (< 300 ng/mL); PCP Urine VISTA NEGATIVE (< 25 ng/mL); THC Urine VISTA NEGATIVE (< 50 ng/mL); Vista UDS pH Range 5
[2024-11-07] MEDS: Ceftriaxone 1 GM/50 ML BAG IV (11:40)
[2024-11-07] MEDS: 0.9% Saline Lock 10 ML Syringe IV (11:43)
--- NOTE | 2024-11-07 12:21 | CON.PCM.NE_ITS ---
Assessment and Plan: Neuro Assessment/Plan MAGED SOTO is a 64 M with a past medical history of HTN,DM HLD and MARKOS , being evaluated by Teleneurology for acute stroke vs TIA. Pt had acute onset left side waekness( leg more than arm) and reported confusion. CT head showed no acute findings, CTA with no LVO some intracraial athrosclerotic disease, his symptoms has improved presentation is concerning for TIA Plan: Follow up MRI report start Plavix and DAPT for 21 days then cont with ASA 81 mg only cont Lipitor 40 mg daily TTE vascular risks modifications follow up with neurology HPI Consult Data Date of Consult: 11/07/24 HPI Narrative HPI Narrative: MAGED SOTO, is a 64 M with a past medical history of essential hypertension;hyperlipidemia; morbid obesity; with BMI of 42 this admission, MARKOS; DM-2; who presents to [facility] ER complaining of Left-sided weakness and confusion. Symptoms started around 7:00 PM on the evening of November 06 when he was trying to get off the couch and noticed left leg weakness and some left arm weakness. his also report transient confusion( oriented to self, did not know the time of the day or the date). he presented to the ED as stroke activation, CT Head and CTA showed no acute findings. [facility], LAT[facility] Medical History MARKOS (obstructive sleep apnea) Obesity Hyperlipidemia Essential hypertension Atherosclerosis of coronary artery without angina pectoris History of appendicitis GERD (gastroesophageal reflux disease) Diabetes Home Medications ?Medication ?Instructions ?Recorded ?Last Taken ?Type atorvastatin 40 mg tablet 40 mg PO QHS 03/02/14 Unknow n History multivitamin 1 tab PO DAILY 03/02/14 Unkn own History omeprazole 20 mg capsule,delayed 20 mg PO DAILY 03/03/14 History release aspirin 81 mg chewable tablet 81 mg PO DAILY 12/17/20 Unknown History lisinopril 20 1 tab PO BID 12/17/20 Unknow n History mg-hydrochlorothiazide 12.5 mg tablet metformin 500 mg tablet 1,000 mg PO BID 01/21/21 Unk nown History glimepiride 1 mg tablet 1 mg PO BID 11/26/21 Unknown History propranolol 60 mg tablet 60 mg PO Q12H 11/06/24 Unkno wn History Allergy/AdvReac Type Severity Reaction Status Date / Time No Known Allergies Allergy Verified 11/06/24 22:09 Family History Father Diabetes Heart disease Hypertension CAD (coronary artery disease) Surgical History History of rotator cuff surgery History of left heart catheterization (03/03/14) History of appendectomy History of fracture of leg History of carpal tunnel surgery Social History household members: significant other Smoking Status: Former smoker Tobacco: How many years used: 10 Smokeless tobacco user: chewing tobacco and other how long ago did patient quit smokin years ago alcohol intake: current alcohol intake frequency: holidays/special occasions only Alcohol type: beer substance use type: does not use caffeine: Yes Type: tea Number of servings: 2 seatbelt use: never do you feel safe at home: Yes Vital Signs Vital Signs Vital Signs: 11/06/24 22:12 11/06/24 22:25 11/06/24 22:34 Temperature 100.3 F H Temperature Source Oral Pulse Rate 102 H 103 H Respiratory Rate 22 H 16 Respiratory Effort Respiratory Depth Respiratory Pattern Blood Pressure 158/81 H 139/75 H Blood Pressure Mean 106 96 Blood Pressure Source Blood Pressure Position Blood Pressure Location Pulse Ox 95 94 Oxygen Delivery Method Room Air Room Air Room Air 11/06/24 22:49 11/06/24 23:14 11/06/24 23:49 Temperature 98.6 F Temperature Source Oral Pulse Rate 101 H 93 Respiratory Rate 18 19 H Respiratory Effort Short of Breath Respiratory Depth Respiratory Pattern Tachypnea Blood Pressure 151/84 H 131/78 H Blood Pressure Mean 106 95 Blood Pressure Source Blood Pressure Position Blood Pressure Location Pulse Ox 96 96 Oxygen Delivery Method Room Air Room Air 11/07/24 00:30 11/07/24 00:55 11/07/24 01:53 Temperature 98.6 F 99.4 F H Temperature Source Oral Pulse Rate 91 91 93 Respiratory Rate 18 17 18 Respiratory Effort Respiratory Depth Respiratory Pattern Blood Pressure 132/73 H 130/74 H 120/97 H Blood Pressure Mean 92 92 104 Blood Pressure Source Blood Pressure Position Blood Pressure Location Pulse Ox 96 97 97 Oxygen Delivery Method Room Air Room Air 11/07/24 03:00 11/07/24 03:33 11/07/24 03:49 Temperature 98.4 F Temperature Source Oral Pulse Rate 91 92 90 Respiratory Rate 18 20 H Respiratory Effort Normal Respiratory Depth Normal Respiratory Pattern Normal Blood Pressure 138/78 H 140/104 H Blood Pressure Mean 98 116 Blood Pressure Source Monitor Blood Pressure Position Semi-Fowlers Blood Pressure Location Right Arm Pulse Ox 95 95 Oxygen Delivery Method Room Air Room Air Room Air 11/07/24 04:35 11/07/24 07:04 11/07/24 07:20 Temperature 99.9 F H Temperature Source Temporal Pulse Rate 95 Respiratory Rate 19 H Respiratory Effort Respiratory Depth Respiratory Pattern Blood Pressure 141/68 H Blood Pressure Mean 92 Blood Pressure Source Monitor Blood Pressure Position Semi-Fowlers Blood Pressure Location Right Arm Pulse Ox 94 94 95 Oxygen Delivery Method Room Air Room Air Room Air 11/07/24 08:15 11/07/24 10:35 Temperature 97.8 F Temperature Source Temporal Pulse Rate 105 H Respiratory Rate 18 Respiratory Effort Normal Respiratory Depth Normal Respiratory Pattern Normal Blood Pressure 163/90 H Blood Pressure Mean 114 Blood Pressure Source Monitor Blood Pressure Position Semi-Fowlers Blood Pressure Location Right Forearm Pulse Ox 95 Oxygen Delivery Method Room Air Room Air Weight Weight: 128.911 kg Body Mass Index (BMI) 41.9 EEG Results Procedure Details EEG Procedure Details: MAGED SOTO is a 64 year old M with a past medical history of , who presents for evaluation of Electroencephalogram on DATE at TIME NIHSS NIHSS Nursing Documentation NIHSS Nursing Documentation: NIHSS: Ischemic Stroke/TIA Start: 11/07/24 03:35 Text: For PCU Patients: NIH and Neuro Check every 4 Status: Active hours, PRN and with change in RN caregiver. Freq: [id number] Protocol: Activity Type Activity Date Activity User E-sign Co-sign Detail Recorded Client Recorded Date Recorded By Document 11/07/24 10:33 EMIL [id number] 11/07/24 10:35 EMIL 11/07/24 10:33 NIH Stroke Scale [NIHSS] A score of 0 is normal or asymptomatic . Total possible score is 42. Inpatient: RN or Physician to activate a stroke alert for onset of new stroke symptoms or with NIHSS increase >/= 3 points. Following change in neurological status, NIHSS will be performed per physician order or more frequently PRN. -1a. Level of Consciousness Alert; keenly responsive -1b. LOC Questions Answers BOTH questions correctly. -1c. LOC Commands Performs both tasks correctly . -2. Best Gaze Normal -3. Visual No visual loss -4. Facial Palsy Normal symmetrical movements -5a. Left Arm No drift; arm holds 90 (or 45 ) degrees for full 10 seconds -5b. Right Arm No drift; arm holds 90 (or 45 ) degrees for full 10 seconds -6a. Left Leg No drift; leg holds 30-degree position for full 5 seconds -6b. Right Leg No drift; leg holds 30-degree position for full 5 seconds -7. Limb Ataxia Absent -8. Sensory Normal; no sensory loss -9. Best Language No aphasia; normal -10. Dysarthria Normal -11. Extinction and Inattention No abnormality -Total 0 Query Text:A score of 0 is normal or asymptomatic. Total possible score is 42 . ED: Notify Physician for NIHSS increase by > / = 3 points. Inpatient: RN or Physician to activate a stroke alert for NIHSS increase of > / = 3 points. Coma Scale [Assess] -Eye Opening Spontaneous -Motor Obeys Commands -Verbal Oriented [Total] -Coma Scale Total 15 NIHSS 1a. Level of Consciousness: Alert; keenly responsive 1b. LOC Questions: Answers BOTH questions correctly. 1c. LOC Commands: Performs both tasks correctly. 2. Best Gaze: Normal 4. Facial Palsy: Normal symmetrical movements 5a. Left Arm: No drift; arm holds 90 (or 45) degrees for full 10 seconds 5b. Right Arm: No drift; arm holds 90 (or 45) degrees for full 10 seconds 6a. Left Leg: No drift; leg holds 30-degree position for full 5 seconds 6b. Right Leg: No drift; leg holds 30-degree position for full 5 seconds 7. Limb Ataxia: Absent 8. Sensory: Normal; no sensory loss 9. Best Language: No aphasia; normal 10. Dysarthria: Normal 11. Extinction and Inattention: No abnormality Total: 0 Physical Exam Neuro Neuro Narrative: awake alert oriented x3 following commands PERRLA, EMOI Face symmetric move all ext antigravity with no drift no sensory deficit Lab / Micro Data 11/06/24 22:17 11/06/24 22:17 Labs: Laboratory Results - last 24 hr 11/06/24 22:16: POC Glucose 198 H 11/06/24 22:17: WBC 6.7, RBC 4.18 L, Hgb 13.3, Hct 39.6 L, MCV 94.7 H, MCH 31.8, MCHC 33.6, RDW Std Deviation 46.0 H, RDW Coeff of Isidro 13.3, Plt Count 195, MPV 11.6, Immature Gran % (Auto) 0.400, Neut % (Auto) 80.0 H, Lymph % (Auto) 10.1 L, [place] % (Auto) 7.0, Eos % (Auto) 1.9, Baso % (Auto) 0.6, Absolute Neuts (auto) 5.4, Absolute Lymphs (auto) 0.68 L, Nucleated RBC % 0, PT 14.2, INR 1.1, APTT 28.6, Sodium 139, Potassium 3.9, Chloride 105, Carbon Dioxide 22.0, Anion Gap 12, BUN 25 H, Creatinine 1.71 H, Estim Creat Clear Calc 56.99, Est GFR (MDRD) Af Amer 52 L, Est GFR (MDRD) Non-Af 43 L, BUN/Creatinine Ratio 14.6, Glucose 207 H , Calcium 9.3, Magnesium 1.5 L, Triglycerides Cancelled, Cholesterol Cancelled, LDL Cholesterol Cancelled, VLDL Cholesterol Cancelled, HDL Cholesterol Cancelled, Folate Cancelled, TSH 0.980 11/06/24 23:00: Urine Color Yellow, Urine Clarity Clear, Urine pH 6.0, Ur Specific [place] 1.010, Urine Protein 30 H, Urine Glucose (UA) Normal, Urine Ketones 15 H, Urine Occult Blood 10 H, Urine Nitrite Negative, Urine Bilirubin Negative, Urine Urobilinogen Normal, Ur Leukocyte Esterase Negative, Urine RBC 0 SEEN, Urine WBC 0 SEEN, Ur Squamous Epith Cells 0 SEEN, Urine Bacteria 0 SEEN, Urine Mucus 0 SEEN, Urine Opiates Screen NEGATIVE, Urine Methadone Screen NEGATIVE, Ur Barbiturates Screen NEGATIVE, Ur Phencyclidine Scrn NEGATIVE, Ur Amphetamines Screen NEGATIVE, MDMA (Ecstasy) Screen NEGATIVE, U Benzodiazepines Scrn NEGATIVE, Urine Cocaine Screen NEGATIVE, U Cannabinoids Screen NEGATIVE, Ur Drug Screen Comment 11/07/24 07:09: Triglycerides 297 H, Cholesterol 134, LDL Cholesterol 37, VLDL Cholesterol 59 H, HDL Cholesterol 38 L, Vitamin B12 310, Folate 29.60, Ethyl Alcohol < 3.0 11/07/24 07:32: POC Glucose 174 H Micro: Microbiology 11/06/24 23:00 Mucosa - Nose SARS-CoV-2, Influenza & RSV (PCR) - Final Imaging Radiology Impression Brain CT 11/06/24 22:17 IMPRESSION: 1. No acute intracranial abnormalities are demonstrated. 2. Right maxillary sinus inflammatory changes. Reading Location: [facility] Chest X-Ray 11/06/24 22:17 IMPRESSION: No active cardiopulmonary disease. Reading Location: [facility] Head/Neck CTA 11/06/24 22:17 IMPRESSION: 1. No critical stenotic lesions are noted. 2. Mild atherosclerotic calcific changes are identified. 3. No aneurysms or vascular malformations. 4. Right maxillary sinus inflammatory changes. 5. Leftward deviation of the nasal septum. Reading Location: [facility] Active Medications Active Medications Active Medications: Current Medications Generic Name Dose Route Start Last Admin Trade Name Freq PRN Reason Stop Dose Admin Acetaminophen 650 mg 11/07/24 03:35 Acetaminophen 325 Mg Tablet PO Q6H PRN PRN Pain 1-10 Or Fever>99.6 Aspirin 81 mg 11/07/24 08:00 11/07/24 08:19 Aspirin 81 Mg Tab.Chew PO 81 mg BREAKFAST LOC Administration Atorvastatin Calcium 40 mg 11/07/24 22:00 Atorvastatin Calcium 40 Mg Tablet PO QHS LOC Guaifenesin 10 ml 11/07/24 08:00 Guaifenesin 10 Ml Udc (200mg/10ml) PO Q4H PRN PRN COUGH/CONGESTION Heparin Sodium (Porcine) 5,000 unit 11/07/24 06:00 11/07/24 04:14 Heparin Injection (Vial) 5,000 Unit/Ml Vial SC 5,000 unit Q8 LOC Administration Sodium Chloride 1,000 mls @ 50 mls/hr 11/07/24 03:05 11/07/24 11:41 IV 11/07/24 23:04 0 mls/hr .Q20H LOC Infusion Protocol Ceftriaxone Sodium 1 gm in 50 mls @ 100 mls/hr 11/07/24 10:00 11/07/24 11:40 Rocephin IV 100 mls/hr Q24 LOC Administration Azithromycin 500 mg/ Sodium 255 mls @ 255 mls/hr 11/07/24 05:55 11/07/24 10:45 Chloride IV Infused Q24 LOC Infusion Multivitamins 1 tablet 11/07/24 08:00 11/07/24 08:19 Multivitamins,Therapeutic Tablet PO 1 tablet DAILYCM LOC Administration Pantoprazole Sodium 20 mg 11/07/24 10:00 11/07/24 08:19 Pantoprazole Sodium 20 Mg Tablet PO 20 mg DAILY LOC Administration Sodium Chloride 10 - 40 ml 11/07/24 03:25 11/07/24 11:43 0.9% Saline Lock 10 Ml Syringe IV 20 ml UD PRN Administration SALINE FLUSH
[2024-11-07] MEDS: Insulin Lispro 100 UNIT/ML INSULN.PEN SC ×2 (12:41→16:35)
[2024-11-07 13:00] LABS: Bedside Glucose 202 mg/dL (74-106)
--- NOTE | 2024-11-07 13:46 | PCM.DC.SUM ---
Providers Date of Admission: 11/07/24 Primary Care Physician: CARLOS Price Consultations 11/07/24 03:35 Consult: Tele-Neurology Routine Consulting Provider: [facility] Reason for Consult: Acute Ischemic Stroke/TIA EMERGENT Consult: No MD Notified: Yes Date Notified: 11/07/24 Time Notified: 02:56 Method of Notification: ED Physician Initiated Nursing Unit Staff Notify [facility] of Tele-Neurology Consult: Yes Reason For Visit: LEFT SIDED WEAKNESS AND CONFUSION WITH Diagnosis Discharge Diagnosis (1) TIA (transient ischemic attack): Status: Acute Code(s): G45.9 - Transient cerebral ischemic attack, unspecified (2) Left-sided weakness: Status: Acute Code(s): R53.1 - Weakness (3) Essential hypertension: Status: Acute Code(s): I10 - Essential (primary) hypertension (4) Hyperlipidemia: Status: Acute Code(s): E78.5 - Hyperlipidemia, unspecified Qualifiers: Hyperlipidemia type: unspecified Qualified Code(s): E78.5 - Hyperlipidemia, unspecified Plan Patient is a 64-year-old gentleman who was brought to the emergency department by the with complaints of patient being confused and experiencing left-sided weakness 1. Suspected CVA ? Patient presented with left-sided weakness. Admitted to monitored bed for subsequent management. As part of patient's evaluation every 4 neurochecks ordered in addition to 2D echo MRI and [facility] teleneurology. Patient was started on antiplatelet therapy with aspirin as well as atorvastatin. Patient MRI was negative for acute CVA however teleneuro recommended for patient to be discharged home dual antiplatelet therapy for 21 days and to continue with aspirin and statin therapy 2D echo demonstrated Normal LV size. Moderate concentric left ventricular hypertrophy. The left ventricular ejection fraction is 60 %. Stage 1 diastolic dysfunction 2. Acute right maxillary sinusitis ? Patient is on patient CT finding. Patient was started on antibiotics ? Patient was discharged on Augmentin 3. Hypomagnesemia ? Corrected per protocol 4. Class III obesity with BMI of 42 ? Complicating care weight loss advised 5. Essential hypertension ? Plan is to allow for permissive hypertension until stroke is ruled out 6. Dyslipidemia ?Patient is on statin therapy, continued at home dose 7. GERD ? On PPI 8. Diabetes mellitus type II -patient's oral hypoglycemics held. Placed on long acting insulin, Accu-Cheks a.c. and at bedtime and covered with sliding scale insulin 9. Nonalcoholic fatty liver disease ? Patient to follow-up with primary care physician 10 . DVT prophylaxis - Heparin 5,000U sq Time spent in the patient's overall evaluation,decision-making process, review of diagnostic data, adjustment of management, discussion with other providers, nursing nursing and ancillary staff involved in patient's care documentation, 35 minutes Medications at Discharge Home Medications atorvastatin 40 mg tablet 40 mg PO QHS 03/02/14 multivitamin 1 tab PO DAILY 03/02/14 omeprazole 20 mg capsule,delayed release 20 mg PO DAILY 03/02/14 aspirin 81 mg chewable tablet 81 mg PO DAILY 12/17/20 lisinopril 20 mg-hydrochlorothiazide 12.5 mg tablet 1 tab PO BID 12/17/20 metformin 500 mg tablet 1,000 mg PO BID 01/21/21 glimepiride 1 mg tablet 1 mg PO BID 11/26/21 propranolol 60 mg tablet 60 mg PO Q12H 11/06/24 amoxicillin 875 mg-potassium clavulanate 125 mg tablet 1 tab PO BID #20 tabs 11/07/24 clopidogrel 75 mg tablet (Plavix) 75 mg PO DAILY #20 tabs 11/07/24 Physical Exam Narrative GENERAL: cooperative HEENT: Atraumatic; normocephalic EYES; Anicteric, Normal Conjunctiva NECK; supple, normal thyroid, RESPIRATORY: Diminished to auscultation CARDIOVASCULAR: Regular S1 S2, GI: soft, normoactive bowel sounds, : No Renal angle tenderness; EXTREMITIES: No edema, no clubbing, MUSCULOSKELETAL: no muscle wasting NEURO: Awake; no lateralizing signs. SKIN: No Rash PSYCH; Flat affect Weight / BMI Weight Weight: 128.911 kg Body Mass Index (BMI) 41.9 ABG / Lab / Microbiology Data 11/06/24 22:17 11/06/24 22:17 Laboratory: Laboratory Results - last 24 hr 11/06/24 22:16: POC Glucose 198 H 11/06/24 22:17: WBC 6.7, RBC 4.18 L, Hgb 13.3, Hct 39.6 L, MCV 94.7 H, MCH 31.8, MCHC 33.6, RDW Std Deviation 46.0 H, RDW Coeff of Isidro 13.3, Plt Count 195, MPV 11.6, Immature Gran % (Auto) 0.400, Neut % (Auto) 80.0 H, Lymph % (Auto) 10.1 L, [place] % (Auto) 7.0, Eos % (Auto) 1.9, Baso % (Auto) 0.6, Absolute Neuts (auto) 5.4, Absolute Lymphs (auto) 0.68 L, Nucleated RBC % 0, PT 14.2, INR 1.1, APTT 28.6, Sodium 139, Potassium 3.9, Chloride 105, Carbon Dioxide 22.0, Anion Gap 12, BUN 25 H, Creatinine 1.71 H, Estim Creat Clear Calc 56.99, Est GFR (MDRD) Af Amer 52 L, Est GFR (MDRD) Non-Af 43 L, BUN/Creatinine Ratio 14.6, Glucose 207 H, Hemoglobin A1c 8.9 H, Calcium 9.3, Magnesium 1.5 L, Triglycerides Cancelled, Cholesterol Cancelled, LDL Cholesterol Cancelled, VLDL Cholesterol Cancelled, HDL Cholesterol Cancelled, Folate Cancelled, TSH 0.980 11/06/24 23:00: Urine Color Yellow, Urine Clarity Clear, Urine pH 6.0, Ur Specific [place] 1.010, Urine Protein 30 H, Urine Glucose (UA) Normal, Urine Ketones 15 H, Urine Occult Blood 10 H, Urine Nitrite Negative, Urine Bilirubin Negative, Urine Urobilinogen Normal, Ur Leukocyte Esterase Negative, Urine RBC 0 SEEN, Urine WBC 0 SEEN, Ur Squamous Epith Cells 0 SEEN, Urine Bacteria 0 SEEN, Urine Mucus 0 SEEN, Urine Opiates Screen NEGATIVE, Urine Methadone Screen NEGATIVE, Ur Barbiturates Screen NEGATIVE, Ur Phencyclidine Scrn NEGATIVE, Ur Amphetamines Screen NEGATIVE, MDMA (Ecstasy) Screen NEGATIVE, U Benzodiazepines Scrn NEGATIVE, Urine Cocaine Screen NEGATIVE, U Cannabinoids Screen NEGATIVE, Ur Drug Screen Comment 11/07/24 07:09: Triglycerides 297 H, Cholesterol 134, LDL Cholesterol 37, VLDL Cholesterol 59 H, HDL Cholesterol 38 L, Vitamin B12 310, Folate 29.60, Ethyl Alcohol < 3.0 11/07/24 07:32: POC Glucose 174 H 11/07/24 12:37: POC Glucose 202 H Microbiology: Microbiology 11/06/24 23:00 Mucosa - Nose SARS-CoV-2, Influenza & RSV (PCR) - Final Radiography Diagnostic Testing: Radiology Impression Brain CT 11/06/24 22:17 IMPRESSION: 1. No acute intracranial abnormalities are demonstrated. 2. Right maxillary sinus inflammatory changes. [facility] Chest [facility]-Ray 11/06/24 22:17 IMPRESSION: No active cardiopulmonary disease. Reading Location: [facility] Head/Neck CTA 11/06/24 22:17 IMPRESSION: 1. No critical stenotic lesions are noted. 2. Mild atherosclerotic calcific changes are identified. 3. No aneurysms or vascular malformations. 4. Right maxillary sinus inflammatory changes. 5. Leftward deviation of the nasal septum. Reading Location[facility] Brain MRI 11/07/24 03:03 IMPRESSION: No acute intracranial abnormality. Parenchymal atrophy and chronic microvascular ischemia. Reading Location: [facility] Echocardiogram 11/07/24 03:03 Interpretation Summary Normal LV size. Moderate concentric left ventricular hypertrophy. The left ventricular ejection fraction is 60 %. Stage 1 diastolic dysfunction. Ordering Physician: Pradip Amezcua Performed By: Pao Lopez RDCS D/C Instructions Discharge Diet: Low fat / Low cholesterol and 1800 Calorie Control Diet Discharge Activity: Return to Normal Activity Call your doctor if you observe: Fever of 101 or Higher, Shortness of breath, Fainting spells and Chest pain DC O2, CPAP, BIPAP Needs Home O2 Discharge instructions: No Meaningful Use Info Meaningful Use Meaningful Use Diagnoses (Choose all that apply): None applicable Ischemic Stroke Statin Dosing Therapy Reference: STATIN DOSE THERAPY REFERENCE: * Patients > 75 years receive moderate or high dose statin therapy. * Patients 75 years or YOUNGER should receive HIGH intensity statin dose unless contraindicated. You will be required to document reason for non-treatment if statin daily dose does not meet guidelines. HIGH DOSE STATIN THERAPY DAILY Atorvastatin > than or = to 40 mg Rosuvastatin > than or = to 20 mg Amlodipine + Atorvastatin > than or = to 2.5/40 mg Ezetimibe + Simvastatin 10/80 mg Simvastatin 80mg Discharge Plan Admission Admit Date/Time: 11/07/24 02:54 Attending Provider: Pradip Sutton Primary Care Provider: Anuradha Gastelum Consulting Providers: Pradip Amezcua; Beto Rodgers; Andrea Curiel; Annika Wetzel; Cassie Weber; Lauryn Clemons; Leonardo Olson; Shilpa Decker; Tim Robles; Kasi Joyner; Marlon Dallas; Melony Mckenna; Keegan Lynn; Dana Villa; Priscilla Johnson; Vickey Garibay; Tevin Mckinnon; Zina Wylie; Hipolito Johnson; Annie Acuña; Farrah Ochoa Discharge Orders/Prescriptions Prescriptions: New clopidogrel [Plavix] 75 mg tablet 75 mg PO DAILY Qty: 20 0RF amoxicillin-pot clavulanate 875-125 mg tablet 1 tab PO BID Qty: 20 0RF Continued glimepiride 1 mg tablet 1 mg PO BID Patient Comments: TAKE 1 TABLET BY MOUTH DAILY multivitamin 1 TABLET tablet 1 tab PO DAILY atorvastatin 40 MG tablet 40 mg PO QHS omeprazole 20 MG capsule 20 mg PO DAILY lisinopril-hydrochlorothiazide 20-12.5 mg tablet 1 tab PO BID aspirin 81 mg tablet,chewable 81 mg PO DAILY metformin 500 mg tablet 1,000 mg PO BID propranolol 60 mg tablet 60 mg PO Q12H Referrals / Follow Up: Anuradha Gastelum, [facility] [Primary Care Provider] - In 1 Week Disposition Disposition (needs filled in before D/C Order can be placed): Home, Self Care Charges/Coding Visit Charges Inpatient E&M: 90981 Disch Hosp >30min
[2024-11-07 14:12] LABS: Hemoglobin A1c 8.9 % (3.8-5.6)
--- NOTE | 2024-11-07 15:44 | CASEMGMT ---
SW completed a PHQ 9 as patient may have had a TIA. Patient scored a 7 which indicates mild depression. Patient was not sure about counseling resources. SW did provide patient with a list of local mental health providers. Maura ALVARADO
[2024-11-07 17:22] LABS: Bedside Glucose 157 mg/dL (74-106)
== END 2024-11-07 18:24 | disposition home or self-care (01) ==
LOC: ED 11-07 01:21 → PCU 11-07 03:11
PROVIDERS: Admitting Provider Internal Medicine; Emergency Provider Emergency Medicine; PCP Nurse Practitioner Family; Visit Provider Internal Medicine
DX: R29.898 Other symptoms and signs involving the musculoskeletal system (principal); Z68.41 Body mass index [BMI] 40.0-44.9, adult; E66.813 Obesity, class 3; E11.9 Type 2 diabetes mellitus without complications; I10 Essential (primary) hypertension; G47.33 Obstructive sleep apnea (adult) (pediatric); E78.5 Hyperlipidemia, unspecified; I25.10 Atherosclerotic heart disease of native coronary artery without angina pectoris; K21.9 Gastro-esophageal reflux disease without esophagitis; Z79.84 Long term (current) use of oral hypoglycemic drugs; Z79.82 Long term (current) use of aspirin; R53.1 Weakness; J01.00 Acute maxillary sinusitis, unspecified; E83.42 Hypomagnesemia; Z79.899 Other long term (current) drug therapy; F17.220 Nicotine dependence, chewing tobacco, uncomplicated; K76.0 Fatty (change of) liver, not elsewhere classified; R20.0 Anesthesia of skin; R06.02 Shortness of breath; R47.89 Other speech disturbances
CPT/HCPCS: 36415; 70450; 70496; 70498; 70551; 71045; 80048; 80061; 80307; 81001; 82077; 82607; 82746; 82962; 83036; 83735; 84443; 85025; 85610; 85730; 87631; 93005; 93306; 94762; 96361; 96365; 96367; 96372; 96376; 97162; 99221; 99285; Q9957; Q9967; A4216; G0378

== ENCOUNTER → 2025-05-08 | Outpatient (CLI) | payer MEDICARE, SELFPAY ==
[2025-05-08 13:20] LABS: Hematocrit 38.4 % (40-54); Hemoglobin 12.4 g/dL (13.0-16.5); Immature Granulocytes Count 0.010 X10^3/uL (0.0-0.0); Mean Corp Hgb Conc 32.3 g/dL (32-36); Mean Corpuscular Volume 98.0 fL (80-94); Mean Platelet Vol. 12.3 fl (6.2-12.0); NRBC Flagged by Analyzer 0 % (0-5); Platelet Count 203 K/mm3 (150-450); RBC Distribution Width CV 13.3 % (11.6-14.6); RBC Distribution Width SD 47.1 fl (35.1-43.9); Red Blood Count 3.92 M/mm3 (4.6-6.2); White Blood Count 6.0 K/mm3 (4.4-11.0)
[2025-05-08 13:35] LABS: AST(SGOT) 35 U/L (<=37); Alanine Aminotransfer ALT/SGPT 40 U/L (<=46); Albumin, Serum 4.2 g/dL (3.4-4.8); Alkaline Phosphatase 51 U/L (40-129); Anion Gap 16 (5-15); BUN 17 mg/dL (4-19); BUN/Creat Ratio 15.4 RATIO (10-20); Calcium,Total 9.4 mg/dL (7.6-11.0); Carbon Dioxide 22.1 mmol/L (21.0-32.0); Chloride 107 mmol/L (98-108); Cholesterol 124 mg/dL (<=200); Globulin 3.2 g/dL (2.2-4.2); Glucose 167 mg/dL (70-99); Low Density Lipoprotein Calc. 49 mg/dL; PSA,Total - Annual Screen 0.49 ng/mL (0.02-4.00); Potassium 3.8 mmol/L (3.3-5.1); Triglycerides 175 mg/dL; Very Low Density Lipoprotein 35 mg/dL (5-40); cholesterol:hdl ratio screen 3.13
== END | disposition home or self-care (01) ==
LOC: BFHLAB 08:38
PROVIDERS: PCP Nurse Practitioner Family; Visit Provider Nurse Practitioner Family
DX: Z12.5 Encounter for screening for malignant neoplasm of prostate (principal); E78.5 Hyperlipidemia, unspecified; I10 Essential (primary) hypertension
CPT/HCPCS: 36415; 80053; 80061; 84153; 85025; G0103